=== PATIENT | male | born 1985 | race Caucasian/White ===

== ENCOUNTER 2021-12-08 06:15 | Observation (INO) | payer BC ==
[~2021-12-08] VITALS: Ht 170.2 cm; Wt 103.0 kg
[2021-12-08] MEDS: NITROGLYCERIN 0.4 MG SL TABS BTL 25'S SL PRN ×3 (06:41→06:51)
[2021-12-08 06:43] LABS: BASOPHILS # (AUTO) 0.1 10^3/uL (0.0-0.1); BASOPHILS % (AUTO) 0 % (0-10); EOSINOPHILS # (AUTO) 0.1 10^3/uL (0.0-0.3); EOSINOPHILS % (AUTO) 1 % (0-10); HEMATOCRIT 48 % (40-54); HEMOGLOBIN 16.5 g/dL (13.3-17.7); LYMPHOCYTES # (AUTO) 5.3 10^3/uL (1.0-4.0); LYMPHOCYTES % (AUTO) 37 % (12-44); MEAN CORPUSCULAR HEMOGLOBIN 30 pg (25-34); MEAN CORPUSCULAR HGB CONC 34 g/dL (32-36); MEAN CORPUSCULAR VOLUME 88 fL (80-99); MONOCYTES % (AUTO) 7 % (0-12); NEUTROPHILS % (AUTO) 55 % (42-75); PLATELET COUNT 270 10^3/uL (130-400); WHITE BLOOD COUNT 14.5 10^3/uL (4.3-11.0)
[2021-12-08] MEDS ORDERED: ASPIRIN 81 MG CHEW (CHILDREN'S ASA) PO ONE (06:45)
[2021-12-08 06:53] LABS: ALBUMIN 4.5 GM/DL (3.2-4.5); POTASSIUM 3.9 MMOL/L (3.6-5.0)
--- NOTE | 2021-12-08 06:53 | ED Chest Pain ---
General Chief Complaint: Chest Pain Stated Complaint: CP,RT WRIST PAIN Nursing Triage Note: RIGHT SIDED CHEST PAIN, RIGHT ARM PAIN/NUMBNESS X20MIN. Source: patient Exam Limitations: no limitations History of Present Illness Date Seen by Provider: Dec 08, 2021 Time Seen by Provider: 06:26 Initial Comments This 36-year-old gentleman presents to the emergency room with complaints of central chest pain that started approximately 20 minutes prior to arrival. He has associated symptoms of lightheadedness upon walking and numbness and discomfort down his right arm. Patient had been awake since yesterday afternoon and had not yet gone to bed. Patient has a known history of hypertension which is not treated. He also was suspected of having diabetes based on an ER visit previously. He does not follow with a primary care provider. He denies any fever, cough, or shortness of breath. He has not identified any other alleviating or exacerbating factors. He denies smoking, alcohol, or drugs. He is notably hypertensive upon arrival to the ER. Allergies and Home Medications Allergies Coded Allergies: shellfish derived (Verified Allergy, Unknown, 12/08/21) Patient Home Medication List Home Medication List Reviewed: Yes No Active Prescriptions or Reported Meds Review of Systems Review of Systems Constitutional: no symptoms reported EENTM: No Symptoms Reported Respiratory: No Symptoms Reported Cardiovascular: See HPI Gastrointestinal: No Symptoms Reported Genitourinary: No Symptoms Reported Musculoskeletal: no symptoms reported Skin: no symptoms reported Psychiatric/Neurological: No Symptoms Reported Endocrine: No Symptoms Reported Hematologic/Lymphatic: No Symptoms Reported Past Idohgaj-Iszdat-Sjwgzn Hx Patient Social History Tobacco Use?: No Substance use?: No Alcohol Use?: No Pt feels they are or have been: No Immunizations Up To Date COVID19 Vaccine Diagram Clerk: MODERNA Past Medical History Surgery/Hospitalization HX: POSSBILE DIABETES, HTN Surgeries: No Respiratory: No Cardiac: Yes Hypertension Neurological: No Genitourinary: No Gastrointestinal: No Musculoskeletal: No Endocrine: Yes (Probable diabetes) HEENT: No Cancer: No Psychosocial: No Integumentary: No Family Medical History Reviewed and Corrections made Heart Disease (Mother had ID) Physical Exam Vital Signs Vital Signs - First Documented 12/08/21 06:23 Temp 36.1 Pulse 117 Resp 18 B/P (MAP) 176/125 (142) Pulse Ox 98 O2 Delivery Room Air Capillary Refill : Less Than 3 Seconds Height, Weight, BMI Height: '" Weight: lbs. oz. 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 Norm as Tested Skin: Normal Color, Warm/Dry Progress/Results/Core Measures Results/Orders Lab Results Laboratory Tests Test 12/08/21 06:30 12/08/21 06:31 12/08/21 07:00 Range/Units White Blood Count 14.5 H 4.3-11.0 10^3/uL Red Blood Count 5.47 4.30-5.52 10^6/uL Hemoglobin 16.5 13.3-17.7 g/dL Hematocrit 48 40-54 % Mean Corpuscular Volume 88 80-99 fL Mean Corpuscular Hemoglobin 30 25-34 pg Mean Corpuscular Hemoglobin Concent 34 32-36 g/dL Red Cell Distribution Width 13.1 10.0-14.5 % Platelet Count 270 130-400 10^3/uL Mean Platelet Volume 10.0 9.0-12.2 fL Immature Granulocyte % (Auto) 1 % Neutrophils (%) (Auto) 55 42-75 % Lymphocytes (%) (Auto) 37 12-44 % Monocytes (%) (Auto) 7 0-12 % Eosinophils (%) (Auto) 1 0-10 % Basophils (%) (Auto) 0 0-10 % Neutrophils # (Auto) 8.0 H 1.8-7.8 10^3/uL Lymphocytes # (Auto) 5.3 H 1.0-4.0 10^3/uL Monocytes # (Auto) 1.0 0.0-1.0 10^3/uL Eosinophils # (Auto) 0.1 0.0-0.3 10^3/uL Basophils # (Auto) 0.1 0.0-0.1 10^3/uL Immature Granulocyte # (Auto) 0.1 0.0-0.1 10^3/uL Neutrophils % (Manual) 60 % Lymphocytes % (Manual) 22 % Monocytes % (Manual) 6 % Eosinophils % (Manual) 1 % Basophils % (Manual) 0 % Band Neutrophils 0 % Reactive Lymphocytes 11 % Blood Morphology Comment NORMAL Prothrombin Time 13.4 12.2-14.7 SEC INR Comment 1.0 0.8-1.4 Activated Partial Thromboplast Time 25 24-35 SEC Sodium Level 137 135-145 MMOL/L Potassium Level 3.9 3.6-5.0 MMOL/L Chloride Level 98 98-107 MMOL/L Carbon Dioxide Level 24 21-32 MMOL/L Anion Gap 15 H 5-14 MMOL/L Blood Urea Nitrogen 15 7-18 MG/DL Creatinine 1.15 0.60-1.30 MG/DL Estimat Glomerular Filtration Rate 84 BUN/Creatinine Ratio 13 Glucose Level 298 H 70-105 MG/DL Calcium Level 10.1 8.5-10.1 MG/DL Corrected Calcium 9.7 8.5-10.1 MG/DL Magnesium Level 1.9 1.6-2.4 MG/DL Total Bilirubin 0.7 0.1-1.0 MG/DL Aspartate Amino Transf (AST/SGOT) 25 5-34 U/L Alanine Aminotransferase (ALT/SGPT) 62 H 0-55 U/L Alkaline Phosphatase 67 40-136 U/L Myoglobin 31.9 10.0-92.0 NG/ML Troponin I 0.230 H <0.028 NG/ML Total Protein 8.0 6.4-8.2 GM/DL Albumin 4.5 3.2-4.5 GM/DL D-Dimer 0.31 0.00-0.49 UG/ML C-Reactive Protein High Sensitivity 0.50 0.00-0.50 MG/DL My Orders Orders - MAKI ANAYA MD Cbc With Automated Diff (12/08/21 06:25) Magnesium (12/08/21 06:25) Chest 1 View, Ap/Pa Only (12/08/21 06:25) Ekg Tracing (12/08/21 06:25) Comprehensive Metabolic Panel (12/08/21 06:25) Myoglobin Serum (12/08/21 06:25) Protime With Inr (12/08/21 06:25) Partial Thromboplastin Time (12/08/21 06:25) O2 (12/08/21 06:25) Monitor-Rhythm Ecg Trace Only (12/08/21 06:25) Lipid Panel (12/09/21 06:00) Ed Iv/Invasive Line Start (12/08/21 06:25) Troponin I [place] (12/08/21 06:25) Nitroglycerin 0.4 Mg Btl 25's (Nitrostat (12/08/21 06:45) Aspirin Chewable Tablet (Baby Aspirin Ch (12/08/21 06:45) Manual Differential (12/08/21 06:31) Hs C Reactive Protein (12/08/21 07:07) Fibrin Degradation Products (12/08/21 07:07) Thyroid Analyzer (12/08/21 07:07) Metoprolol Succinate (Xl) Tab (Toprol Xl (12/08/21 07:45) Clopidogrel Tablet (Plavix Tablet) (12/08/21 07:45) Lactated Ringers (Lr 1000 Ml Iv Solution (12/08/21 07:45) Enoxaparin Injection (Lovenox Injectio (12/08/21 07:45) Nitroglycerin Ointment (Nitrobid Ointme (12/08/21 07:45) Medications Given in ED Current Medications Medications Dose Ordered Sig/Vic Route Start Time Stop Time Status Last Admin Dose Admin Aspirin 324 mg ONCE ONCE PO 12/08/21 06:45 12/08/21 06:46 DC 12/08/21 06:41 324 MG Clopidogrel Bisulfate 75 mg ONCE ONCE PO 12/08/21 07:45 12/08/21 07:46 DC 12/08/21 08:01 75 MG Enoxaparin Sodium 100 mg ONCE ONCE SC 12/08/21 07:45 12/08/21 07:46 DC 12/08/21 08:07 100 MG Lactated Ringer's 1,000 ml @ 100 mls/hr Q10H ONCE IV 12/08/21 07:45 12/08/21 17:44 12/08/21 08:01 100 MLS/HR Nitroglycerin 0.4 mg UD PRN SL 12/08/21 06:45 12/08/21 06:51 DC 12/08/21 06:51 0.4 MG Nitroglycerin 0.5 inch ONCE ONCE TOP 12/08/21 07:45 12/08/21 07:46 DC 12/08/21 08:03 0.5 INCH Vital Signs/I&O 12/08/21 06:23 Temp 36.1 Pulse 117 Resp 18 B/P (MAP) 176/125 (142) Pulse Ox 98 O2 Delivery Room Air Blood Pressure Mean: 142 Progress Progress Note #1: Time: 06:49 Progress Note Patient seen and examined. EKG demonstrated no overt ischemia. Aspirin and nitroglycerin are being administered. Progress Note #2: Time: 07:09 Progress Note Blood pressure normalized after nitroglycerin x3. Patient states his pain decreased from 6/10 down to 2/10 after nitroglycerin x3. Troponin is still pending. Progress Note #3: Time: 07:56 Progress Note Patient was noted to have an elevated troponin. I discussed the situation with Dr. Solorzano. He requests admission to the cardiac stepdown unit with the following medications: Nitroglycerin paste 1/2 inch every 8 hours, Plavix 75 mg now and daily, Toprol-XL 50 mg now and daily, weight-based Lovenox therapy. He has also requested an echocardiogram. Patient is being admitted to the hospitalist service. He does have leukocytosis and hyperglycemia. I have added a CRP and D-dimer for further evaluation. Hemoglobin A1c will also be added. Progress Note #4: Time: 08:26 Progress Note D-dimer and CRP were normal. Patient reports his mother had ID a year ago. His father also told him he should be screened for aortic dissection starting at age 40. He gave no other explanation. Initial ECG Impression Date: Dec 08, 2021 Initial ECG Impression Time: 06:28 Initial ECG Rate: 104 Initial ECG Rhythm: Normal Sinus Initial ECG Intervals: Normal Comment Sinus rhythm with right bundle branch block. No ST elevation or depression to suggest ischemia. No axis deviation. Diagnostic Imaging Diagonstic Imaging: Xray Plain Films/CT/US/NM/MRI: chest Comments Chest x-ray viewed by me and report reviewed. See report below: NAME: INGRID AUSTIN MED REC#: [id number] PT STATUS: REG ER : 1985 PHYSICIAN: MAKI ANAYA MD ADMIT DATE: 12/08/21/ER Signed Date of Exam:12/08/21 CHEST 1 VIEW, AP/PA ONLY EXAMINATION: Chest radiograph, portable AP view. DATE: 12/08/2021 7:00 AM INDICATION: 36-year-old male, right-sided chest pain. COMPARISON: None. FINDINGS: Heart size and mediastinal contours are unremarkable. There is no identified pneumothorax. There is no large pleural effusion. There is no identified focal airspace consolidation. IMPRESSION: No identified acute cardiopulmonary abnormality. Dictated by: Dictated on workstation # [id number] Dict: 12/08/21699 Trans: 12/08/21743 CV [id number] Interpreted by: MAX FARAH MD Electronically signed by: MAX FARAH MD 12/08/2144 Departure Communication (Admissions) Time/Spoke to Admitting Phy: 07:50 Dr. Langley Time/Spoke to Consulting Phy: 07:30 Dr. Solorzano Impression Primary Impression: Chest pain Qualified Codes: R07.9 - Chest pain, unspecified Additional Impressions: Elevated troponin Uncontrolled hypertension Hyperglycemia Leukocytosis Qualified Codes: D72.829 - Elevated white blood cell count, unspecified Disposition: ADMITTED INPATIENT Condition: Improved Admissions Decision to Admit Reason: Admit from ER (General) Decision to Admit/Date: Dec 08, 2021 Time/Decision to Admit Time: 07:25 Departure-Patient Inst. Referrals: NO,LOCAL PHYSICIAN (PCP/Family) Primary Care Physician Scripts No Active Prescriptions or Reported Meds MAKI ANAYA MD Dec 08, 2021 06:53
[2021-12-08 06:55] LABS: CALCIUM 10.1 MG/DL (8.5-10.1)
[2021-12-08 06:56] LABS: PROTHROMBIN TIME PATIENT 13.4 SEC (12.2-14.7)
[2021-12-08 06:58] LABS: BILIRUBIN,TOTAL 0.7 MG/DL (0.1-1.0)
[2021-12-08 06:59] LABS: CREATININE SERUM 1.15 MG/DL (0.60-1.30)
[2021-12-08 07:03] LABS: MAGNESIUM 1.9 MG/DL (1.6-2.4)
--- NOTE | 2021-12-08 07:13 | Diagnostic Imaging Report ---
EXAMINATION: Chest radiograph, portable AP view. DATE: 12/08/2021 7:00 AM INDICATION: 36-year-old male, right-sided chest pain. COMPARISON: None. FINDINGS: Heart size and mediastinal contours are unremarkable. There is no identified pneumothorax. There is no large pleural effusion. There is no identified focal airspace consolidation. IMPRESSION: No identified acute cardiopulmonary abnormality. Dictated by: Dictated on workstation # [id number]
[2021-12-08 07:30] LABS: BAND NEUTROPHILS 0 %; EOSINOPHILS % (MANUAL) 1 %; LYMPHOCYTES % (MANUAL) 22 %; MONOCYTES % (MANUAL) 6 %; NEUTROPHILS % (MANUAL) 60 %
[2021-12-08 07:31] LABS: BASOPHILS % (MANUAL) 0 %; RBC MORPH NORMAL; REACTIVE LYMPHOCYTES 11 %
[2021-12-08] MEDS ORDERED: NITROGLYCERIN 2% OINT 1 GM UNIT DOSE PACKET TOP ONE (07:45)
[2021-12-08] MEDS ORDERED: LACTATED RINGERS 1,000 ML IV ONE (07:45)
[2021-12-08] MEDS ORDERED: meTOproloL SUCCINATE 50 MG (TOPROL XL) TAB PO SCH (07:45)
[2021-12-08] MEDS ORDERED: CLOPIDOGREL 75 MG (PLAVIX) TABLET PO ONE (07:45)
[2021-12-08] MEDS ORDERED: ENOXAPARIN 60 MG/0.6 ML (LOVENOX) SYR SC ONE (07:45)
[2021-12-08] MEDS ORDERED: ENOXAPARIN 60 MG/0.6 ML (LOVENOX) SYR ONE (08:06)
[2021-12-08 08:27] LABS: TSH (THYROID ANALYZER) 1.79 UIU/ML (0.35-4.94)
[2021-12-08] MEDS ORDERED: ONDANSETRON 4 MG/2 ML (SDV) Z0FRAN IV PRN (08:45)
[2021-12-08] MEDS ORDERED: morphine INJ 4 MG/ML 1 ML (VIAL/SYRINGE) IV PRN (08:45)
[2021-12-08 11:56] VITALS: BP 122/83
[2021-12-08] MEDS ORDERED: MIDAZOLAM 5 MG/5 ML (VERSED) VIAL ONE (12:47)
[2021-12-08] MEDS ORDERED: fentaNYL INJ 100 MCG/2 ML AMP ONE (12:47)
[2021-12-08] MEDS ORDERED: HEParin (CATH LAB) 2,000 ML IV ONE (12:48)
[2021-12-08] MEDS ORDERED: LIDOCAINE 1% INJ 20 ML VIAL ONE (12:48)
[2021-12-08] MEDS ORDERED: NS IV 1000 ML 1,000 ML ONE (12:48)
[2021-12-08] MEDS ORDERED: methylPREDNISolone 125 MG (Solu-MEDROL) VIAL ONE (12:59)
[2021-12-08] MEDS: NS IV 1000 ML 1,000 ML IV SCH ×2 (13:00→15:42)
[2021-12-08] MEDS ORDERED: diphenhydrAMINE 50 MG/ML INJ (BENADRYL) ONE (13:06)
[2021-12-08] MEDS ORDERED: FAMOTIDINE 20MG/2ML IV (PEPCID) ONE (13:06)
--- NOTE | 2021-12-08 13:07 | Consultation-Cardiology ---
HPI-Cardiology Cardiology Consultation: Date of Consultation 12/08/21 Time Seen by a Provider: 11:30 Date of Admission Attending Physician Mary Solorzano MD Facp Facc Ccds Admitting Physician Elizabeth,Local Physician Consulting Physician MARY SOLORZANO MD, FACP, FAC, [facility], CCDS HPI: Chief Complaint: Chest discomfort 36 yo man who has been having chest discomfort since the afternoon of 12/07/21. It has waxed and waned but hasn't resolved. Did not sleep well last night. Discomfort was worse this am. Came to ER. Was given s/l NTG, discomfort improved, but still continues with a mild residual discomfort. Discomfort is upper midsternal, radiating to the R shoulder/arm, not associated with n/v/d, no palp or syncope, some associated shortness of breath. Denies swelling Review of Systems-Cardiology Review of Systems Constitutional: malaise, tiredness; No weight loss, No weight gain Eyes: No vision change Ears/Nose/Throat: No ear discharge, No nasal drainage, No recent hearing loss Respiratory: As described under HPI Cardiovascular: As described under HPI Gastrointestinal: No diarrhea, No vomiting Genitourinary: No dysuria, No hematuria Musculoskeletal: No back pain, No joint pain, No muscle pain Skin: No rash, No ulcerations Psychiatric/Neurological: No seizure, No focal weakness, No syncope Hematologic: No bleeding abnormalities RSH-Qdsuyd-Ysjzfh Hx Patient Social History Have you traveled recently?: No Alcohol Use?: No Pt feels they are or have been: No Immunizations Up To Date Date of Influenza Vaccine: Aug 07, 2021 Past Medical History PMH As described under Assessment. Family Medical History Family Medical History: Does not report fam h/o early CAD or SCD Allergies and Home Medications Allergies Coded Allergies: shellfish derived (Verified Allergy, Unknown, 12/08/21) Patient Home Medication List Home Medication List Reviewed: Yes No Active Prescriptions or Reported Meds Physical Exam-Cardiology Physical Exam Vital Signs/I&O 12/08/21 12/08/21 12/08/21 12/08/21 06:23 08:16 08:30 09:43 Temp 36.1 Pulse 117 89 97 Resp 18 14 B/P (MAP) 176/125 (142) 151/100 Pulse Ox 98 98 99 O2 Delivery Room Air Room Air 12/08/21 12/08/21 11:56 12:47 Temp 36.9 Pulse 93 107 Resp 12 B/P (MAP) 122/83 (96) Pulse Ox 98 O2 Delivery Room Air Capillary Refill : Less Than 3 Seconds Constitutional: AAO x 3, well-developed, well-nourished HEENT: EOMI, hearing is well preserved; No xanthelasmas are seen Neck: carotid pulses are 2 + bilaterally, with good upstrokes Respiratory: No accessory muscle use; other (good, bilateral air entry) Cardiovascular: regular rate-rhythm, S1 and S2, systolic murmur (soft EDWIN at card basee) Gastrointestinal: No tender; soft; No guarding, No rebound; audible bowel sounds Extremities: No clubbing, No cyanosis, No significant edema Neurologic/Psychiatric: oriented x 3, other (moves all limbs equally) Skin: No rash on exposed areas, No ulcerations on exposed areas Data Review Labs Laboratory Tests 12/08/21 04:40: Troponin I 0.263H 12/08/21 06:30: 12/08/21 06:31: Troponin I 0.230H, White Blood Count 14.5H, Red Blood Count 5.47, Hemoglobin 16.5, Hematocrit 48, Mean Corpuscular Volume 88, Mean Corpuscular Hemoglobin 30, Mean Corpuscular Hemoglobin Concent 34, Red Cell Distribution Width 13.1, Platelet Count 270, Mean Platelet Volume 10.0, Immature Granulocyte % (Auto) 1, Neutrophils (%) (Auto) 55, Lymphocytes (%) (Auto) 37, Monocytes (%) (Auto) 7, Eosinophils (%) (Auto) 1, Basophils (%) (Auto) 0, Neutrophils # (Auto) 8.0H, Lymphocytes # (Auto) 5.3H, Monocytes # (Auto) 1.0, Eosinophils # (Auto) 0.1, Basophils # (Auto) 0.1, Immature Granulocyte # (Auto) 0.1, Neutrophils % (Manual) 60, Lymphocytes % (Manual) 22, Monocytes % (Manual) 6, Eosinophils % (Manual) 1, Basophils % (Manual) 0, Band Neutrophils 0, Reactive Lymphocytes 11, Blood Morphology Comment NORMAL, Prothrombin Time 13.4, INR Comment 1.0, Act ivated Partial Thromboplast Time 25, Sodium Level 137, Potassium Level 3.9, Chloride Level 98, Carbon Dioxide Level 24, Anion Gap 15H, Blood Urea Nitrogen 15, Creatinine 1.15, Estimat Glomerular Filtration Rate 84, BUN/Creatinine Ratio 13, Glucose Level 298H, Calcium Level 10.1, Corrected Calcium 9.7, Magnesium Level 1.9, Total Bilirubin 0.7, Aspartate Amino Transf (AST/SGOT) 25, Alanine Aminotransferase (ALT/SGPT) 62H, Alkaline Phosphatase 67, Myoglobin 31.9, Total Protein 8.0, Albumin 4.5 12/08/21 07:00: D-Dimer 0.31, C-Reactive Protein High Sensitivity 0.50, TSH [place] Testing 1.79 A/P-Cardiology Assessment/Admission Diagnosis Ac NSTEMI - Echo on 12/08/21: LVEF 45-50%, anteroapical hypokinesis Hypertension DM II Discussion and Recomendations * Card cath recommended. We discussed the rationale, procedure, risks, benefits, potential complications and alternatives of cardiac cath and possible ad hoc cor intervention with him in detail. He understands and provides informed consent * Treat with DAPT and beta-ramandeep. Nitrates as needed * Further recs to based on hosp course and cath results Clinical Quality Measures AMI/AHF: ASA po Prior to arrival: MARY Jones MD FACP FAC CCDS Dec 08, 2021 13:07
[2021-12-08] MEDS ORDERED: HEParin 1000 UNIT/ML (10ML VIAL) FOR BOLUS ONE (13:43)
[2021-12-08] MEDS ORDERED: NITRO DRIP 25000 MCG/D5W 250 ML IV ONE (13:43)
[2021-12-08] MEDS ORDERED: EPTIFIBATIDE BOLUS 20 ML IV ONE (13:44)
[2021-12-08] MEDS ORDERED: CLOPIDOGREL 75 MG (PLAVIX) TABLET ONE (14:32)
[2021-12-08] MEDS ORDERED: CLOPIDOGREL 300 MG (PLAVIX) TABLET PO ONE (14:33)
[2021-12-08] MEDS ORDERED: PATIENT MAY USE OWN MEDS, ALL PO SCH (15:00)
[2021-12-08] MEDS ORDERED: ACETAMINOPHEN 325 MG TABLET PO PRN (15:00)
[2021-12-08] MEDS ORDERED: PANTOPRAZOLE 40 MG (PROTONIX) TAB PO ONE (15:15)
[2021-12-08] MEDS ORDERED: ANTACID SUSP 30 ML UDC (MYLANTA) PO PRN (15:15)
--- NOTE | 2021-12-08 15:26 | CARDIAC CATHETERIZATION ---
DATE OF SERVICE: 12/08/2021 CARDIAC CATHETERIZATION AND CORONARY INTERVENTION REPORT The patient is a 36-year-old man who has maturity-onset diabetes mellitus and hypertension, who presented with one day of waxing and waning chest discomfort and troponin was mildly elevated. Echocardiography showed anteroapical hypokinesis. Acute non-ST elevation myocardial infarction was diagnosed. Urgent cardiac catheterization was recommended, because of continuing symptoms. Informed consent was obtained for cardiac catheterization and possible ad hoc coronary intervention. DESCRIPTION OF PROCEDURE: He was brought to the cardiac catheterization laboratory. The right groin was prepared and draped in the usual sterile fashion. Lidocaine 1% was used for local anesthesia. Modified Seldinger technique was used to advance a 5-Luxembourger sheath in the right femoral artery. A 5-Luxembourger JL3.5 catheter was used for left coronary angiography and 5-Luxembourger JR4 catheter was used for right coronary angiography. Subsequently, percutaneous intervention was carried out to the left anterior descending artery that is described below. Following completion of the left anterior descending artery intervention, we proceeded with left heart catheterization with a 5-Luxembourger pigtail catheter and left ventricular angiography was performed. The catheter was then pulled back and removed. Angiography of the right femoral artery was carried out through the sheath and Mynx was used to achieve hemostasis. He tolerated the procedure well. PERCUTANEOUS INTERVENTION TO THE LEFT ANTERIOR DESCENDING: We exchanged the sheath over a wire for a 6-Luxembourger sheath. The patient had received Lovenox 3 to 4 hours earlier in the emergency room. We gave 3000 units of intravenous heparin. We gave a double bolus of Integrilin and Integrilin infusion was continued throughout the procedure. We used a 6-Luxembourger Q4 guide to engage the left coronary artery. We advanced a ChoICE floppy wire across two severe lesions in the mid and distal left anterior descending. The mid lesion was 99% to 100%. The distal lesion was 95 to 99%. We then carried out balloon angioplasty first of the proximal lesion with a 2.0 x 20 mm balloon and then to the distal lesion with a 1.5 x 20 mm balloon. This reduced the proximal lesion to approximately 70% residual and there was still approximately 80% to 90% residual stenosis in the distal lesion. The distal lesion was not responsive, but the vessels certainly turning into a very small caliber vessel. We used a 2.0 x 12 mm stent that was initially deployed at 8 atmospheres to match the distal part of the distal vessel and we then inflated the proximal two-thirds with a same balloon to 12 atmospheres in the proximal half of the stent with a same balloon to 18 atmospheres. All of this was done to match stent into both the distal part of the standard segment and to the proximal part of the standard segment. Good results were obtained. We then stented the proximal lesion with 2.5 x 22 mm stent that was deployed at 14 atmospheres and the proximal half of the stent was dilated with a same balloon to 18 atmospheres. Again, this was used to match the stent to both the proximal segments of the standard segment. Following deployment of these stents, there is no significant residual stenosis and flow throughout the vessel is normal. The patient tolerated the procedure well. HEMODYNAMICS: Left ventricular end-diastolic pressure following coronary angiography and coronary intervention was 16 mmHg. There was no significant pressure gradient on pullback across the aortic valve. LEFT VENTRICULAR ANGIOGRAPHY: Left ventricular angiography was carried out in the TOLLIVER projection only. Global left ventricular systolic function is fairly well preserved, and the ejection fraction is estimated to be approximately 45%. There appears to be hypokinesis of the anteroapical segment of the left ventricle. CORONARY ANGIOGRAPHY: No significant Left main coronary artery disease. Left anterior descending artery was 99-100% occluded in its mid portion and there was also a 95 to 99% stenosis in the distal part of the vessel. Following successful intervention to both lesions, there is no significant residual stenosis. The distal stent is Resolute 2.0 x 12 mm and the proximal stent is Resolute 2.5 x 22 mm. The left circumflex artery is diminutive, and has mild plaques. The right coronary artery is large and dominant. It has diffuse plaques and the terminal posterolateral branch of this artery has approximately 60% to 70% proximal stenosis. CONCLUSIONS: 1. Coronary artery disease primarily consisting of near-total mid-vessel occlusion and severe distal stenosis of the left anterior descending to which successful intervention was carried out. Following deployment of Resolute [place] 2.5 x 23 mm stent to the mid lesion and Resolute [place] 2.0 x 12 mm stent to the distal lesion, there is no significant residual stenosis. Left circumflex artery is nondominant and has mild plaques. Right coronary artery is large and dominant and has diffuse mild plaques and the terminal posterolateral branch of the right coronary artery has 60% to 70% proximal stenosis. 2. Mild elevation of left ventricular end-diastolic pressure (16 mmHg). 3. Anteroapical hypokinesis. 4. Left ventricular ejection fraction approximately 45%. DISCUSSION AND RECOMMENDATIONS: He remains hospitalized. Dual antiplatelet therapy has been initiated. Beta ramandeep therapy is being provided. LEANN inhibitor therapy will be given as tolerated. Statin therapy is also being initiated. The hospitalist services is managing his diabetes. Job ID: [id number] DocumentID: [id number] Dictated Date: 12/08/2021 14:58:10 Locker Room Manager Date: 12/08/2021 15:25:52 Dictated By: PJ PRINGLE MD, MA, FACP, FACC, MTDD
[2021-12-08 15:48] VITALS: BP 146/104
[2021-12-08] MEDS ORDERED: NITROGLYCERIN 2% OINT 1 GM UNIT DOSE PACKET TOP SCH (16:00)
[2021-12-08 20:00] VITALS: BP 131/103
[2021-12-08] MEDS: inSUlin ASPART (NovoLOG) 1 UNIT/0.01 ML (CHARGE PER UNIT) SC SCH (20:50)
[2021-12-08] MEDS ORDERED: ENOXAPARIN 100 MG/1 ML (LOVENOX) SYR SC SCH (21:00)
--- NOTE | 2021-12-08 21:34 | History & Physical-Hospitalist ---
History of Present Illness Source: patient Exam Limitations: no limitations Date Seen 12/08/21 Time Seen by a Provider: 10:20 Attending Physician Mary Solorzano MD Facp Fac Ccds PCP No,Local Physician Referring Physician Date of Admission Dec 08, 2021 at 07:54 Home Medications & Allergies Home Medications Reviewed patient Home Medication Reconciliation performed by pharmacy medication reconciliations avionics repair technician and/or nursing. Patients Allergies have been reviewed. Allergies Allergies Coded Allergies shellfish derived (Verified Allergy, Unknown, 12/08/21) Past Wouqcwk-Xrbcdo-Tfgnbu Hx Patient Social History Tobacco Use?: No Substance use?: No Alcohol Use?: No Pt feels they are or have been: No Immunizations Up To Date Date of Influenza Vaccine: Aug 07, 2021 Tetanus Booster (TDap): Unknown Current Status Advance Directives: No Communicates: Verbally Primary Language: Yakut Preferred Spoken Language: Yakut Is interpretation needed?: No Implanted or Applied Medical D: None Past Medical History Hypertension Family Medical History Reviewed and Corrections made Heart Disease (Mother had NE) Physical Exam Physical Exam Vital Signs Vital Signs - First Documented 12/08/21 06:23 Temp 36.1 Pulse 117 Resp 18 B/P (MAP) 176/125 (142) Pulse Ox 98 O2 Delivery Room Air Capillary Refill : Less Than 3 Seconds Height, Weight, BMI Height: '" Weight: lbs. oz. kg; 35.55 BMI Method: Results Results/Procedures Labs Laboratory Tests 12/08/21 06:31 Patient resulted labs reviewed. Clinical Quality Measures AMI/AHF: ASA po Prior to arrival: SILVIA Mcgowan MD Dec 08, 2021 21:34
[2021-12-09] VITALS: BP 133/90
[2021-12-09 04:00] VITALS: BP 96/58
[2021-12-09 05:08] LABS: TRIGLYCERIDES 212 MG/DL (<150); VLDL CHOLESTEROL 42 MG/DL (5-40)
[2021-12-09 05:13] LABS: CHOLESTEROL 252 MG/DL (< 200)
[2021-12-09 05:14] LABS: HDL CHOLESTEROL 36 MG/DL (40-60)
[2021-12-09] MEDS: NS IV 1000 ML 1,000 ML IV SCH ×6 (06:26→20:07)
[2021-12-09] MEDS: inSUlin ASPART (NovoLOG) 1 UNIT/0.01 ML (CHARGE PER UNIT) SC SCH ×4 (06:26→20:06)
[2021-12-09 08:04] VITALS: BP 115/81
[2021-12-09] MEDS: lisINopril 5 MG (PRINIVIL) TABLET PO SCH (08:30)
[2021-12-09] MEDS: meTOproloL SUCCINATE 50 MG (TOPROL XL) TAB PO SCH (08:30)
[2021-12-09] MEDS: CLOPIDOGREL 75 MG (PLAVIX) TABLET PO SCH (08:30)
[2021-12-09] MEDS: PANTOPRAZOLE 40 MG (PROTONIX) TAB PO SCH (08:30)
[2021-12-09] MEDS: ASPIRIN E.C. 81 MG (ECOTRIN) TAB PO SCH (08:30)
[2021-12-09] MEDS ORDERED: ASPI-1238 PO (10:22)
[2021-12-09] MEDS ORDERED: CLOP75TA28 PO (10:22)
[2021-12-09] MEDS ORDERED: LISI5TAB20 PO (10:22)
[2021-12-09] MEDS ORDERED: METO50TA7 PO (10:22)
[2021-12-09] MEDS ORDERED: ATOR80TA76 PO (10:22)
[2021-12-09] MEDS ORDERED: METF-397 PO (10:23)
[2021-12-09 12:00] VITALS: BP 120/77
--- NOTE | 2021-12-09 15:29 | Progress Note - Cardiology ---
Cardiology SOAP Progress Note Subjective: No cp or palp or syncope or shortness of breath No groin discomfort or leg pain or discoloration No n/v/d No swelling Objective: I&O/Vital Signs 12/09/21 12/09/21 12/09/21 12/09/21 04:00 07:00 08:04 09:47 Temp 36.5 36.6 Pulse 79 87 91 Resp 14 B/P (MAP) 96/58 (71) 115/81 (92) Pulse Ox 92 96 99 O2 Delivery Room Air Room Air Room Air 12/09/21 12/09/21 12:00 13:00 Temp 36.4 Pulse 96 101 Resp 15 B/P (MAP) 120/77 (91) Pulse Ox 96 O2 Delivery Room Air 12/09/21 00:00 Intake Total 200 ml Output Total 1300 ml Balance -1100 ml Condition: DP/PT pulses palpable Bruising: mild bruising Constitutional: AAO x 3, well-developed, well-nourished Respiratory: No accessory muscle use; other (good, bilateral air entry) Cardiovascular: regular rate-rhythm, S1 and S2, systolic murmur (soft EDWIN at card basee) Gastrointestional: No tender; soft; No guarding, No rebound; audible bowel sounds Extremities: No clubbing, No cyanosis, No significant edema Neurologic/Psychiatric: oriented x 3, other (moves all limbs equally) Skin: No rash on exposed areas, No ulcerations on exposed areas Results/Procedures: Labs Laboratory Tests 12/08/21 20:42: Glucometer 346H 12/09/21 04:48: Triglycerides Level 212H, Cholesterol Level 252H, LDL Cholesterol Direct 222H, VLDL Cholesterol 42H, HDL Cholesterol 36L 12/09/21 06:20: Glucometer 257H 12/09/21 10:36: Glucometer 275H A/P: Assessment: Ac NSTEMI, treated with PCI to LAD (see below) - Echo on 12/08/21: LVEF 45-50%, anteroapical hypokinesis - Cardiac cath on 12/08/21: near-total mid vessel occlusion and severe distal stenosis of the left anterior descending. Following deployment of [place] 2.5 x 23 mm stent to the mid lesion and [place] Resolute 2.0 x 12 mm stent to the distal lesion, there is no significant residual stenosis. Left circumflex artery is nondominant and has mild plaques. Right coronary artery is large and dominant and has diffuse mild plaques and the terminal posterolateral branch of the right coronary artery has 60% to 70% proximal stenosis. Mild elevation of left ventricular end-diastolic pressure (16 mmHg). Anteroapical hypokinesis. Left ventricular ejection fraction approximately 45%. Hypertension DM II Plan: * We had a detailed discussion regarding his diagnoses, interventions and treatment undertaken, risk factor mod, and future treatment plans * Increase ambulation. Advised ambulation in the durán * Continue therapy with DAPT and statin and bb and LEANN-inhib Clinical Quality Measures AMI/AHF: ASA po Prior to arrival: PJ Jones MD FACP FAC CCDS Dec 09, 2021 15:29
[2021-12-09] MEDS ORDERED: ENOXAPARIN 40 MG/0.4 ML (LOVENOX) SYR SC ONE (15:30)
[2021-12-09 15:55] VITALS: BP 108/80
--- NOTE | 2021-12-09 16:20 | Discharge Summary ---
Discharge Summary Hospital Course Problems/Dx: (1) Chest pain Status: Acute Qualifiers: Qualified Codes: R07.9 - Chest pain, unspecified (2) CAD (coronary artery disease) Status: Acute Qualifiers: (3) HTN (hypertension) Status: Acute (4) HLD (hyperlipidemia) Status: Acute (5) T2DM (type 2 diabetes mellitus) Status: Acute Qualifiers: Qualified Codes: E11.9 - Type 2 diabetes mellitus without complications (6) Obesity Status: Chronic Hospital Course Date of Admission: Dec 08, 2021 at 07:54 Admission Diagnosis : Chest pain, NSTEMI Family Physician/Provider: ElizabethLocal Physician Date of Discharge: 12/09/21 Discharge Diagnosis: NSTEMI, CAD, HTN, HLD, T2DM Hospital Course: Silvio Cullen is a 36 year old male with no known past medical history who presented with chest pain. He was found to have an elevated troponin. Cardiology was consulted and assisted with his care. He underwent left heart catheterization. He was found to have a near complete occlusion of his LAD and required two stents. He was started on Aspirin and Plavix. He was found to have hyperlipidemia and was started on Lipitor. He was hypertensive and was started on Metoprolol and Lisinopril. He was also diagnosed with type 2 diabetes mellitus and was started on Metformin. His A1C was pending at the time of discharge. He needs to establish with a primary care physician. He should follow up with Cardiology in a few weeks. He was discharged home in stable condition. Labs and Pending Lab Test: Laboratory Tests 12/08/21 20:42: Glucometer 346H 12/09/21 04:48: Triglycerides Level 212H, Cholesterol Level 252H, LDL Cholesterol Direct 222H, VLDL Cholesterol 42H, HDL Cholesterol 36L 12/09/21 06:20: Glucometer 257H 12/09/21 10:36: Glucometer 275H 12/09/21 15:20: Glucometer 254H Home Meds Active Metformin HCl 500 Mg Tablet 500 Mg PO DAILY@07 30 Days TAKE ONE TAB DAILY X 1 WEEK, THEN INCREASE TO ONE TAB TWICE DAILY Lisinopril 5 Mg Tablet 5 Mg PO DAILY 30 Days Metoprolol Succinate 50 Mg Tab.er.24h 50 Mg PO DAILY 30 Days Atorvastatin Calcium 80 Mg Tablet 80 Mg PO HS 30 Days Clopidogrel (Clopidogrel Bisulfate) 75 Mg Tablet 75 Mg PO DAILY 30 Days Aspirin EC (Aspirin) 81 Mg Tablet. 81 Mg PO DAILY 30 Days Assessment/Pt Instructions Take medications as prescribed. Establish with a primary care physician. Follow up with Cardiology. Return with worsening chest pain, shortness of breath, or if you feel like you are getting worse. Discharge Planning: <30 minutes discharge planning Discharge Instructions Discharge Diet: ADA Diet Activity as Tolerated: Yes Consultations Cardiology Discharge Physical Examination Vital Signs Vital Signs Date Time Temp Pulse Resp B/P (MAP) Pulse Ox O2 Delivery O2 Flow Rate FiO2 12/09/21 15:55 36.8 100 17 108/80 (89) 97 Room Air General Appearance: No Apparent Distress, Obese Respiratory: Lungs Clear, No Respiratory Distress Cardiovascular: Regular Rate, Rhythm, No Murmur Gastrointestinal: Normal Bowel Sounds, Soft Extremity: Normal Inspection, No Pedal Edema Skin: Normal Color, Warm/Dry Neurologic/Psychiatric: Alert, Oriented x3 Allergies: Coded Allergies: shellfish derived (Verified Allergy, Unknown, 12/08/21) Discharge Summary Date of Admission Dec 08, 2021 at 07:54 Date of Discharge Discharge Date: Dec 09, 2021 Discharge Time: 16:19 Admission Diagnosis NSTEMI Consults/Procedures Consulations Cardiology Procedures Left heart catheterization Discharge Diagnosis (1) CAD (coronary artery disease) Status: Acute Qualifiers: (2) HTN (hypertension) Status: Acute (3) HLD (hyperlipidemia) Status: Acute (4) T2DM (type 2 diabetes mellitus) Status: Acute Qualifiers: Qualified Codes: E11.9 - Type 2 diabetes mellitus without complications (5) Obesity Status: Chronic (6) Metabolic syndrome Status: Acute Clinical Quality Measures AMI/AHF: ASA po Prior to arrival: SILVIA Mcgowan MD Dec 09, 2021 16:12
[2021-12-09 19:28] VITALS: BP 111/66
[2021-12-10] VITALS: BP 107/67
[2021-12-10 04:00] VITALS: BP 111/72
[2021-12-10] MEDS: inSUlin ASPART (NovoLOG) 1 UNIT/0.01 ML (CHARGE PER UNIT) SC SCH (05:55)
[2021-12-10] MEDS: NS IV 1000 ML 1,000 ML IV SCH ×2 (06:58→07:35)
[2021-12-10] MEDS ORDERED: metFORMIN 500 MG (GLUCOPHAGE) TAB PO SCH (07:00)
[2021-12-10 08:00] VITALS: BP 100/70
[2021-12-10] MEDS: CLOPIDOGREL 75 MG (PLAVIX) TABLET PO SCH (08:15)
[2021-12-10] MEDS: ASPIRIN E.C. 81 MG (ECOTRIN) TAB PO SCH (08:15)
[2021-12-10] MEDS: meTOproloL SUCCINATE 50 MG (TOPROL XL) TAB PO SCH (08:15)
[2021-12-10] MEDS: lisINopril 5 MG (PRINIVIL) TABLET PO SCH (08:15)
[2021-12-10] MEDS: PANTOPRAZOLE 40 MG (PROTONIX) TAB PO SCH (08:15)
--- NOTE | 2021-12-10 09:46 | Progress Note - Cardiology ---
Cardiology SOAP Progress Note Subjective: Lying in bed No c/o CP, SOB, palpitations No c/o right groin discomfort Objective: I&O/Vital Signs 12/10/21 12/10/21 12/10/21 12/10/21 00:00 01:00 04:00 07:00 Temp 36.6 36.4 Pulse 87 80 81 83 Resp 16 15 B/P (MAP) 107/67 (80) 111/72 (85) Pulse Ox 94 96 O2 Delivery Room Air Room Air 12/10/21 12/10/21 08:00 08:00 Temp 36.4 Pulse 98 Resp 18 B/P (MAP) 100/70 (80) Pulse Ox 98 98 O2 Delivery Room Air Room Air 12/10/21 00:00 Intake Total 1150 ml Balance 1150 ml Side: right Condition: DP/PT pulses palpable, extremity w/d/p Bruising: mild bruising Constitutional: AAO x 3, well-developed, well-nourished Respiratory: No accessory muscle use; other (good, bilateral air entry) Cardiovascular: regular rate-rhythm, S1 and S2, systolic murmur (soft EDWIN at card basee) Gastrointestional: No tender; soft; No guarding, No rebound; audible bowel sounds Extremities: No clubbing, No cyanosis, No significant edema Neurologic/Psychiatric: oriented x 3, other (moves all limbs equally) Skin: No rash on exposed areas, No ulcerations on exposed areas Results/Procedures: Labs Laboratory Tests 12/09/21 10:36: Glucometer 275H 12/09/21 15:20: Glucometer 254H 12/09/21 20:02: Glucometer 243H 12/10/21 05:49: Glucometer 186H A/P: Assessment: Ac NSTEMI, treated with PCI to LAD (see below) - Echo on 12/08/21: LVEF 45-50%, anteroapical hypokinesis - Cardiac cath on 12/08/21: near-total mid vessel occlusion and severe distal stenosis of the left anterior descending. Following deployment of [place] 2.5 x 23 mm stent to the mid lesion and [place] Resolute 2.0 x 12 mm stent to the distal lesion, there is no significant residual stenosis. Left circumflex artery is nondominant and has mild plaques. Right coronary artery is large and dominant and has diffuse mild plaques and the terminal posterolateral branch of the right coronary artery has 60% to 70% proximal stenosis. Mild elevation of left ventricular end-diastolic pressure (16 mmHg). Anteroapical hypokinesis. Left ventricular ejection fraction approximately 45%. Hypertension - controlled DM II - mangaed by PCP Plan: * Answered questions in detail this morning * OK to discharge home with out pt f/u * Continue therapy with DAPT and statin * Reduce bb and LEANN-inhib d/t somewhat low BP - titrate as tolerated Clinical Quality Measures AMI/AHF: ASA po Prior to arrival: PADMINI Rodriguez Dec 10, 2021 09:46
[2021-12-10] MEDS ORDERED: METO-351 PO (09:52)
--- NOTE | 2021-12-10 09:52 | Discharge Summary ---
Discharge Summary Hospital Course Was the Problem List Reviewed?: Yes Problems/Dx: (1) CAD (coronary artery disease) Status: Acute Qualifiers: (2) HTN (hypertension) Status: Acute (3) HLD (hyperlipidemia) Status: Acute (4) T2DM (type 2 diabetes mellitus) Status: Acute Qualifiers: Qualified Codes: E11.9 - Type 2 diabetes mellitus without complications (5) Obesity Status: Chronic (6) Metabolic syndrome Status: Acute Hospital Course Date of Admission: Dec 08, 2021 at 07:54 Admission Diagnosis : Family Physician/Provider: No,Local Physician Date of Discharge: 12/10/21 Discharge Diagnosis: Unstable angina, non-ST elevation IN, cardiac cath with stents placed in LAD, hypercholesterolemia, diabetes new-onset Hospital Course: Saman is a 36 yo M with no known past medical history who presented to the [place] ER on 12/08/21 due to chest pain, feeling light headed, and numbness of his right arm. He had tachycardia and an elevated troponin. His EKG had sinus rhythm with a RBBB and no ST elevations or depression. Chest X-ray showed no abnormalities. Patient was hospitalized due to elevated troponin and was consulted by cardiology. He had left heart catheterizaton done with two stents placed due to almost complete obstruction of LAD artery. Patient did not experience any issues post catheterization. He was started on Aspirin and Plavix. He was found to have hyperlipidemia and was started on Lipitor. He was hypertensive and was started on Metoprolol and Lisinopril. He was also diagnosed with type 2 diabetes mellitus and was started on Metformin. His A1C was 10.3 at discharge. After being discharged from the hospital he will follow up with Dr. Vazquez for cardiology and will be establishing care with a primary physician. He was stable without any pain at discharge. HERMAN LEON Dec 10, 2021 13:10 Labs and Pending Lab Test: Laboratory Tests 12/09/21 10:36: Glucometer 275H 12/09/21 15:20: Glucometer 254H 12/09/21 20:02: Glucometer 243H 12/10/21 05:49: Glucometer 186H Home Meds Active Metformin HCl 500 Mg Tablet 500 Mg PO DAILY@07 30 Days TAKE ONE TAB DAILY X 1 WEEK, THEN INCREASE TO ONE TAB TWICE DAILY Atorvastatin Calcium 80 Mg Tablet 80 Mg PO HS 30 Days Clopidogrel (Clopidogrel Bisulfate) 75 Mg Tablet 75 Mg PO DAILY 30 Days Aspirin EC (Aspirin) 81 Mg Tablet.dr 81 Mg PO DAILY 30 Days Assessment/Pt Instructions Cardiology follow-up Discharge Planning: <30 minutes discharge planning Discharge Instructions Discharge Diet: ADA Diet Activity as Tolerated: Yes Discharge Physical Examination Vital Signs Vital Signs Date Time Temp Pulse Resp B/P (MAP) Pulse Ox O2 Delivery O2 Flow Rate FiO2 12/10/21 08:00 36.4 98 18 100/70 (80) 98 Room Air General Appearance: No Apparent Distress, WD/WN, Chronically ill, Obese Allergies: Coded Allergies: shellfish derived (Verified Allergy, Unknown, 12/08/21) Discharge Summary Date of Admission Dec 08, 2021 at 07:54 Date of Discharge Discharge Date: Dec 09, 2021 Discharge Time: 16:19 Admission Diagnosis NSTEMI Discharge Diagnosis (1) CAD (coronary artery disease) Status: Acute Qualifiers: (2) HTN (hypertension) Status: Acute (3) HLD (hyperlipidemia) Status: Acute (4) T2DM (type 2 diabetes mellitus) Status: Acute Qualifiers: Qualified Codes: E11.9 - Type 2 diabetes mellitus without complications (5) Obesity Status: Chronic (6) Metabolic syndrome Status: Acute Clinical Quality Measures AMI/AHF: ASA po Prior to arrival: GEOVANNI Cash DO Dec 10, 2021 09:52
[2021-12-10] MEDS ORDERED: LISI2.5T13 PO (09:53)
--- NOTE | 2021-12-10 11:22 | Progress Note - Cardiology ---
Cardiology SOAP Progress Note Subjective: Feels well No groin or leg discomfort/discoloration No cp or palp or syncope No shortness of breath at rest No n/v/d Objective: I&O/Vital Signs 12/10/21 12/10/21 12/10/21 12/10/21 00:00 01:00 04:00 07:00 Temp 36.6 36.4 Pulse 87 80 81 83 Resp 16 15 B/P (MAP) 107/67 (80) 111/72 (85) Pulse Ox 94 96 O2 Delivery Room Air Room Air 12/10/21 12/10/21 08:00 08:00 Temp 36.4 Pulse 98 Resp 18 B/P (MAP) 100/70 (80) Pulse Ox 98 98 O2 Delivery Room Air Room Air 12/09/21 23:59 Intake Total 1150 ml Balance 1150 ml Side: right Condition: DP/PT pulses palpable, extremity w/d/p Bruising: mild bruising Constitutional: AAO x 3, well-developed, well-nourished Respiratory: No accessory muscle use; other (good, bilateral air entry) Cardiovascular: regular rate-rhythm, S1 and S2, systolic murmur (soft EDWIN at card basee) Gastrointestional: No tender; soft; No guarding, No rebound; audible bowel sounds Extremities: No clubbing, No cyanosis, No significant edema Neurologic/Psychiatric: oriented x 3, other (moves all limbs equally) Skin: No rash on exposed areas, No ulcerations on exposed areas Results/Procedures: Labs Laboratory Tests 12/09/21 15:20: Glucometer 254H 12/09/21 20:02: Glucometer 243H 12/10/21 05:49: Glucometer 186H A/P: Assessment: Ac NSTEMI, treated with PCI to LAD (see below) - Echo on 12/08/21: LVEF 45-50%, anteroapical hypokinesis - Cardiac cath on 12/08/21: near-total mid vessel occlusion and severe distal s tenosis of the left anterior descending. Following deployment of [place]al[place] 2.5 x 23 mm stent to the mid lesion and [place] Resolute 2.0 x 12 mm stent to the distal lesion, there is no significant residual stenosis. Left circumflex artery is nondominant and has mild plaques. Right coronary artery is large and dominant and has diffuse mild plaques and the terminal posterolateral branch of the right coronary artery has 60% to 70% proximal stenosis. Mild elevation of left ventricular end-diastolic pressure (16 mmHg). Anteroapical hypokinesis. Left ventricular ejection fraction approximately 45%. Hypertension - controlled DM II - mangaed by PCP Plan: * Answered questions in detail this morning * OK to discharge home with out pt f/u * Continue therapy with DAPT and statin * Reduce bb and LEANN-inhib d/t somewhat low BP - titrate as tolerated Clinical Quality Measures AMI/AHF: ASA po Prior to arrival: PJ Jones MD FACP FACC CCDS Dec 10, 2021 11:22
--- NOTE | 2021-12-10 13:10 | Progress Note ---
HERMAN LEON 12/10/21 1310: Progress Note Saman is a 36 yo M with no known past medical history who presented to the [place] ER on 12/08/21 due to chest pain, feeling light headed, and numbness of his right arm. He had tachycardia and an elevated troponin. His EKG had sinus rhythm with a RBBB and no ST elevations or depression. Chest X-ray showed no abnormalities. Patient was hospitalized due to elevated troponin and was consulted by cardiology. He had left heart catheterizaton done with two stents placed due to almost complete obstruction of LAD artery. Patient did not experie nce any issues post catheterization. He was started on Aspirin and Plavix. He was found to have hyperlipidemia and was started on Lipitor. He was hypertensive and was started on Metoprolol and Lisinopril. He was also diagnosed with type 2 diabetes mellitus and was started on Metformin. His A1C was 10.3 at discharge. After being discharged from the hospital he will follow up with Dr. Vazquez for cardiology and will be establishing care with a primary physician. He was stable without any pain at discharge. CHERYLE LOCKWOOD DO 12/11/21 0526: Supervisory-Addendum Brief Verification & Attestation Participated in pt care: history, MDM, physical Personally performed: exam, history, MDM, supervision of care Care discussed with: Medical Student Procedures: n/a Results interpretation: Verified all documentation Verification and Attestation of Medical Student E/M Service A medical student performed and documented this service in my presence. I reviewed and verified all information documented by the medical student and made modifications to such information, when appropriate. I personally performed the physical exam and medical decision making. Cheryle Lockwood, Dec 11, 2021,05:26 HERMAN LEON Dec 10, 2021 13:10 CHERYLE LOCKWOOD DO Dec 11, 2021 05:26
[2021-12-10] MEDS ORDERED: ENOXAPARIN 40 MG/0.4 ML (LOVENOX) SYR SC SCH (15:30)
== END 2021-12-10 11:25 | disposition home or self-care (01) ==
LOC: ER 06:21 → CSD 07:54
PROVIDERS: ADMIT Internal Medicine Cardiovascular Disease; ATTEND Internal Medicine Cardiovascular Disease
DX: I25.110 Atherosclerotic heart disease of native coronary artery with unstable angina pectoris (principal); I21.4 Non-ST elevation (NSTEMI) myocardial infarction; E78.5 Hyperlipidemia, unspecified; E66.9 Obesity, unspecified; E88.81 Metabolic syndrome and other insulin resistance; E78.00 Pure hypercholesterolemia, unspecified; I11.9 Hypertensive heart disease without heart failure; D72.829 Elevated white blood cell count, unspecified; E11.65 Type 2 diabetes mellitus with hyperglycemia; I45.10 Unspecified right bundle-branch block; Z68.35 Body mass index [BMI] 35.0-35.9, adult; Z95.5 Presence of coronary angioplasty implant and graft; Z79.82 Long term (current) use of aspirin; Z79.02 Long term (current) use of antithrombotics/antiplatelets; Z79.899 Other long term (current) drug therapy; Z79.84 Long term (current) use of oral hypoglycemic drugs
CPT/HCPCS: 71045; 80053; 80061; 82947 ×3; 83036; 83735; 83874; 84443; 84484; 85007; 85027; 85379; 85610; 85730; 86141; 93005 ×2; 93041; 93306; 93458; 99284; C1725 ×2; C1760; C1769; C1874 ×2; C1887 ×2; C1894 ×2; C9600; 36415

== ENCOUNTER → 2022-05-27 | Outpatient (CLI) | payer BC ==
[~2022-05-27] MED LIST: ASPI-1238 PO; ATOR80TA76 PO; CLOP75TA28 PO; LISI2.5T13 PO; LISI5TAB20 PO; METF-397 PO; METO-351 PO; METO50TA7 PO
--- NOTE | 2022-05-27 13:08 | Diagnostic Imaging Report ---
PROCEDURE: US Thyroid. TECHNIQUE: Multiple real-time grayscale images were obtained of the thyroid in various projections. INDICATION: Right thyroid nodule. FINDINGS: There is homogeneous appearance to both right and left lobes of thyroid. Right lobe measures 5 x 1.6 x 1.4 cm. Left lobe measures 4.7 x 1.8 x 1.7 cm. Isthmus is 3 mm. There is normal blood flow. IMPRESSION: Mild thyromegaly with no thyroid nodules demonstrated. Dictated by: Dictated on workstation # [id number]
== END ==
LOC: RAD 11:09
PROVIDERS: ATTEND Family Medicine
DX: E04.1 Nontoxic single thyroid nodule (principal)
CPT/HCPCS: 76536

== ENCOUNTER → 2022-10-03 | Outpatient (CLI) | payer BC | LOC: CARD 11:00 | PROVIDERS: ATTEND Nurse Practitioner Family | DX: I51.89 Other ill-defined heart diseases (principal) | CPT/HCPCS: C8929 ×2; 93306 ==

== ENCOUNTER 2022-11-02 05:58 | Emergency (ER) | payer BC ==
[~2022-11-02] VITALS: Ht 170 cm; Wt 103.0 kg
[2022-11-02] MEDS ORDERED: [UNRECOGNIZED DRUG - CODE] (06:18)
[2022-11-02] MEDS ORDERED: METO50TA7 PO (06:18)
--- NOTE | 2022-11-02 06:24 | ED Chest Pain ---
General Chief Complaint: Cardiac/General Problems Stated Complaint: POSS AFIB,TIGHTNESS OF CHEST Nursing Triage Note: CHEST TIGHTNESS SINCE 199 Source: patient, old records Exam Limitations: no limitations History of Present Illness Date Seen by Provider: Nov 02, 2022 Time Seen by Provider: 06:11 Initial Comments This 37-year-old gentleman with coronary artery disease and diabetes presents to the emergency room with chest tightness since [id number]. He has history of significant coronary artery disease and underwent stenting of the LAD x2 in December when he was admitted for NSTEMI. Most recent echo a few weeks ago showed improvement in EF of 50-55%. There was still apical hypokinesis but no significant systolic dysfunction. He has not yet taken aspirin or Plavix this morning. He normally takes all of his medications around 0900. He describes the pain as an aching or dull discomfort or pressure. It feels like his chest is being stretched laterally. He does not recall if this is similar to the chest pain he experienced during his NSTEMI. Since December he has lost a significant amount of weight and has been taking medications including aspirin, Plavix, atorvastatin, lisinopril, and Toprol-XL. He reports good compliance with his medications over the past few months. He reports reasonably good control of his diabetes. 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 Walker is his primary care provider. He reports pain improved when he sat up and moved around and worsened when he laid down flat. Pain is rated as 4/10 during assessment. Medical students assisted with obtaining this history and old records were also reviewed. He has been off diabetic medications since losing a significant am ount of weight. Allergies and Home Medications Allergies Coded Allergies: shellfish derived (Verified Allergy, Unknown, 12/08/21) Patient Home Medication List Home Medication List Reviewed: Yes Aspirin (Aspirin EC) 81 Mg Tablet.dr, 81 MG PO DAILY Prescribed by: SILVIA TANG on 12/09/21 1022 Atorvastatin Calcium (Atorvastatin Calcium) 80 Mg Tablet, 80 MG PO HS Prescribed by: SILVIA TANG on 12/09/21 1022 Blood Sugar Diagnostic (Accu-Chek Guide Test Strip) 1 Each Strip, (Reported) Entered as Reported by: EMILEE ALEJO on 11/02/22 0618 Last Action: New Order Clopidogrel Bisulfate (Clopidogrel) 75 Mg Tablet, 75 MG PO DAILY Prescribed by: SILVIA TANG on 12/09/21 1022 Lisinopril (Lisinopril) 2.5 Mg Tablet, 2.5 MG PO DAILY Prescribed by: PADMINI LOBATO on 12/10/21 0953 Metformin HCl (Metformin HCl) 500 Mg Tablet, 500 MG PO DAILY@07 Prescribed by: SILVIA TANG on 12/09/21 1023 Metoprolol Succinate (Metoprolol Succinate) 50 Mg Tab.er.24h, (Reported) Entered as Reported by: EMILEE ALEJO on 11/02/22617 Last Action: New Order Pantoprazole Sodium (Protonix) 40 Mg Tablet.dr, 40 MG PO DAILY Prescribed by: MAKI STOLL on 11/02/22941 Discontinued Medications Metoprolol Succinate (Toprol Xl) 25 Mg Tab.er.24h, 25 MG PO DAILY Discontinued Reason: No Longer Taking Prescribed by: PADMINI LOBATO on 12/10/21951 Last Action: Discontinued Review of Systems Review of Systems Constitutional: no symptoms reported EENTM: No Symptoms Reported Respiratory: No Symptoms Reported Cardiovascular: See HPI Gastrointestinal: No Symptoms Reported Genitourinary: No Symptoms Reported Musculoskeletal: no symptoms reported Skin: no symptoms reported Psychiatric/Neurological: No Symptoms Reported Endocrine: No Symptoms Reported Hematologic/Lymphatic: No Symptoms Reported Past Fbiwbiv-Huxdse-Nartyw Hx Patient Social History Tobacco Use?: No Substance use?: No Alcohol Use?: No Pt feels they are or have been: No Immunizations Up To Date First/Initial COVID19 Vaccinat: X2 Past Medical History Surgery/Hospitalization HX: POSSBILE DIABETES, HTN, STENTS Surgeries: Yes Coronary Stent Respiratory: No Cardiac: Yes Coronary Artery Disease, High Cholesterol, Hypertension Neurological: No Genitourinary: No Gastrointestinal: No Musculoskeletal: No Endocrine: Yes Diabetes, Non-Insulin dep HEENT: No Cancer: No Psychosocial: No Integumentary: No Family Medical History Heart Disease Physical Exam Vital Signs Vital Signs - First Documented 11/02/22 06:06 Temp 36.6 Pulse 79 Resp 16 B/P (MAP) 153/85 (107) Pulse Ox 99 O2 Delivery Room Air Capillary Refill : Less Than 3 Seconds Height, Weight, BMI Height: '" Weight: lbs. oz. kg; 35.00 BMI Method: General Appearance: No Apparent Distress, WD/WN HEENT: PERRL/EOMI, Normal ENT Inspection Neck: Normal Inspection; No JVD Respiratory: Lungs Clear, Normal Breath Sounds, No Accessory Muscle Use Cardiovascular: Regular Rate, Rhythm, No Edema, No Murmur, Normal Peripheral Pulses Gastrointestinal: Normal Bowel Sounds, Non Tender, Soft; No Distended Extremity: Normal Inspection, Non Tender, No Calf Tenderness, No Pedal Edema Neurologic/Psychiatric: Alert, Oriented x3, No Motor/Sensory Deficits, Normal Mood/Affect, stoker mechanic II-XII Norm as Tested Skin: Normal Color, Warm/Dry Progress/Results/Core Measures Results/Orders Lab Results Laboratory Tests Test 11/02/22 06:12 11/02/22 08:27 Range/Units White Blood Count 11.0 4.3-11.0 10^3/uL Red Blood Count 4.87 4.30-5.52 10^6/uL Hemoglobin 15.6 13.3-17.7 g/dL Hematocrit 44 40-54 % Mean Corpuscular Volume 91 80-99 fL Mean Corpuscular Hemoglobin 32 25-34 pg Mean Corpuscular Hemoglobin Concent 35 32-36 g/dL Red Cell Distribution Width 12.9 10.0-14.5 % Platelet Count 219 130-400 10^3/uL Mean Platelet Volume 9.8 9.0-12.2 fL Immature Granulocyte % (Auto) 0 % Neutrophils (%) (Auto) 65 42-75 % Lymphocytes (%) (Auto) 28 12-44 % Monocytes (%) (Auto) 6 0-12 % Eosinophils (%) (Auto) 1 0-10 % Basophils (%) (Auto) 1 0-10 % Neutrophils # (Auto) 7.1 1.8-7.8 10^3/uL Lymphocytes # (Auto) 3.1 1.0-4.0 10^3/uL Monocytes # (Auto) 0.7 0.0-1.0 10^3/uL Eosinophils # (Auto) 0.1 0.0-0.3 10^3/uL Basophils # (Auto) 0.1 0.0-0.1 10^3/uL Immature Granulocyte # (Auto) 0.0 0.0-0.1 10^3/uL Prothrombin Time 13.4 12.2-14.7 SEC INR Comment 1.0 0.8-1.4 Activated Partial Thromboplast Time 26 24-35 SEC Sodium Level 140 135-145 MMOL/L Potassium Level 3.6 3.6-5.0 MMOL/L Chloride Level 104 98-107 MMOL/L Carbon Dioxide Level 23 21-32 MMOL/L Anion Gap 13 5-14 MMOL/L Blood Urea Nitrogen 16 7-18 MG/DL Creatinine 0.90 0.60-1.30 MG/DL Estimat Glomerular Filtration Rate 112 BUN/Creatinine Ratio 18 Glucose Level 128 H 70-105 MG/DL Calcium Level 10.1 8.5-10.1 MG/DL Corrected Calcium 8.5-10.1 MG/DL Magnesium Level 2.4 1.6-2.4 MG/DL Total Bilirubin 0.6 0.1-1.0 MG/DL Aspartate Amino Transf (AST/SGOT) 20 5-34 U/L Alanine Aminotransferase (ALT/SGPT) 30 0-55 U/L Alkaline Phosphatase 55 40-136 U/L Myoglobin 45.1 10.0-92.0 NG/ML Troponin I < 0.028 < 0.028 <0.028 NG/ML Total Protein 8.1 6.4-8.2 GM/DL Albumin 4.9 H 3.2-4.5 GM/DL My Orders Orders - MAKI ANAYA MD Ekg Tracing (11/02/22 06:07) Ekg Tracing (11/02/22 06:07) Cbc With Automated Diff (11/02/22 06:18) Magnesium (11/02/22 06:18) Chest 1 View, Ap/Pa Only (11/02/22 06:18) Comprehensive Metabolic Panel (11/02/22 06:18) Myoglobin Serum (11/02/22 06:18) Protime With Inr (11/02/22 06:18) Partial Thromboplastin Time (11/02/22 06:18) O2 (11/02/22 06:18) Monitor-Rhythm Ecg Trace Only (11/02/22 06:18) Ed Iv/Invasive Line Start (11/02/22 06:18) Troponin I Alissa (11/02/22 06:18) Nitroglycerin 0.4 Mg Btl 25's (Nitrostat (11/02/22 06:45) Aspirin Chewable Tablet (Baby Aspirin Ch (11/02/22 06:45) Clopidogrel Tablet (Plavix Tablet) (11/02/22 06:45) Ondansetron Injection (Zofran Injectio (11/02/22 07:45) Lidocaine 2% Viscous 15 Ml (Xylocaine Vi (11/02/22 07:45) Antacid Suspension (Mylanta Suspension (11/02/22 07:45) Troponin I Tama (11/02/22 08:20) Pantoprazole Tablet (Protonix Tablet) (11/02/22 09:45) Medications Given in ED Current Medications Medications Dose Ordered Sig/Vic Route Start Time Stop Time Status Last Admin Dose Admin Al Hydrox/Mg Hydrox/Simethicone 30 ml ONCE ONCE PO 11/02/22 07:45 11/02/22 07:46 DC 11/02/22 07:46 30 ML Aspirin 324 mg ONCE ONCE PO 11/02/22 06:45 11/02/22 06:46 DC 11/02/22 06:48 324 MG Clopidogrel Bisulfate 75 mg ONCE ONCE PO 11/02/22 06:45 11/02/22 06:46 DC 11/02/22 06:48 75 MG Lidocaine HCl 15 ml ONCE ONCE PO 11/02/22 07:45 11/02/22 07:46 DC 11/02/22 07:46 15 ML Nitroglycerin 0.4 mg UD PRN SL 11/02/22 06:45 11/02/22 07:24 DC 11/02/22 07:24 0.4 MG Ondansetron HCl 4 mg ONCE ONCE IVP 11/02/22 07:45 11/02/22 07:46 DC 11/02/22 07:46 4 MG Pantoprazole Sodium 40 mg ONCE ONCE PO 11/02/22 09:45 11/02/22 09:46 DC 11/02/22 09:51 40 MG Vital Signs/I&O 11/02/22 06:06 Temp 36.6 Pulse 79 Resp 16 B/P (MAP) 153/85 (107) Pulse Ox 99 O2 Delivery Room Air Blood Pressure Mean: 107 Progress Progress Note #1: Time: 06:57 Progress Note Patient has been interviewed and examined. EKG demonstrated no ischemia. Labs are pending. Aspirin, Plavix, and nitroglycerin are being administered. We will also give him his usual morning medications as long as his blood pressure remained stable after nitroglycerin. Pain sounds atypical in nature and seems to follow a pattern of GERD. If nitroglycerin does not improve his pain, we wi ll consider a trial of GI cocktail. Cardiac rule out and resolution of pain is important in this patient with notable coronary artery disease and stenting within the last year. Progress Note #2: Time: 07:45 Progress Note Patient still has lingering chest pain that seem relatively unaffected by nitroglycerin. He has had 3 doses of nitroglycerin. The first 2 were swallowed and the third was used sublingually. He had no change in his discomfort even after the sublingual dose. We will trial a GI cocktail with Zofran pretreatment. Pending response to this treatment, I will seek cardiology consultation. Initial work-up was otherwise unremarkable. Patient is generally comfortable at this time with a mild lingering chest discomfort. Progress Note #3: Time: 08:52 Progress Note Case was discussed with Dr. Vazquez. He agrees this patient may undergo atypical cardiac rule out in the emergency room and be discharged after a 2-hour troponin if troponin is negative and he continues to feel well. 2-hour troponin is pending at this time. Progress Note #4: Time: 09:46 Progress Note 2-hour troponin was negative. Patient is denying chest pain at this time. Based on the nature of his chest pain, it is likely to be of GI origin. However, I did emphasize the need to take any chest pain seriously given his history of significant coronary artery disease at a very young age. He expre ssed understanding. He was given a dose of Protonix prior to discharge. See discharge instructions for further discussion. Initial ECG Impression Date: Nov 02, 2022 Initial ECG Impression Time: 06:11 Initial ECG Rate: 80 Initial ECG Rhythm: Normal Sinus Initial ECG Intervals Chronic right bundle branch block Comment Sinus rhythm with no ST elevation or depression diagnostic of STEMI. Right bundle branch block. No axis deviation. Diagnostic Imaging Diagonstic Imaging: Xray Plain Films/CT/US/NM/MRI: chest Comments Chest x-ray reviewed by me and report reviewed. See report below: NAME: INGRID [place] MED REC#: [id number] PT STATUS: REG ER : 1985 PHYSICIAN: MAKI ANAYA MD ADMIT DATE: 11/02/22/ER Draft Date of Exam:11/02/22 CHEST 1 VIEW, AP/PA ONLY INDICATION: Chest pain. Comparison is made with prior examination of 12/08/21. FINDINGS: The heart size, mediastinal configuration, and pulmonary vascularity are within normal limits. There is no pleural effusion, pneumothorax, or pneumonia. The osseous structures are unremarkable. IMPRESSION: No acute cardiopulmonary abnormality. Dictated on workstation # [id number] Dict: 11/02/22 0702 Trans: 11/02/22 0704 [facility] [id number] Interpreted by: MARRY DOS SANTOS MD Departure Impression Primary Impression: Atypical chest pain Additional Impression: Coronary artery disease Qualified Codes: I25.10 - Atherosclerotic heart disease of [place] coronary artery without angina pectoris Disposition: HOME, SELF-CARE Condition: Improved Departure-Patient Inst. Decision time for Depature: 09:38 Referrals: POWER WALKER DO (PCP/Family) Primary Care Physician Patient Instructions: Acid Reflux and Gastroesophageal Reflux Disease in Adults, Chest Pain Add. Discharge Instructions: Your chest pain is more likely caused by acid reflux or a noncardiac issue given the nature of your response to medications in the ER and your lab work. However, you do have very serious coronary artery disease, so any chest pain should be taken very seriously. Please contact your cardiology office on Friday or Friday. You should schedule an appointment within a week to discuss with your director operations broadcast. Continue taking your medications as previously prescribed. Add Protonix as prescribed for acid reflux treatment. In addition, avoid the following: Eating large meals, eating close to bedtime, caffeine, carbonation, chocolate, citrus fruits and juices, tomato products, mints, alcohol, tobacco, spicy foods, fatty/greasy foods, NSAID medications such as ibuprofen or naproxen, and anything else you know irritates your stomach. Elevating the head of your bed or using several pillows at night may also help reduce acid reflux using gravity to your advantage. You may take Tylenol (acetaminophen) for pain and/or Tums for acute pain. If your pain does not promptly resolve with these treatments, return to the ER. Also return to the ER if the nature of your pain changes such that you are having pain with activity and not isolated to times when you are lying down flat. Also return to the ER if you are developing additional symptoms such as shortness of breath, sweating, lightheadedness, etc. Call with questions or concerns. All discharge instructions reviewed with patient and/or family. Voiced understanding. Scripts Pantoprazole Sodium (Protonix) 40 Mg Tablet. 40 MG PO DAILY, #30 TAB Prov: MAKI ANAYA MD 11/02/22 Copy Copies To 1: PJ PRINGLE MD FACP [facility] CCDS Copies To 2: POWER WALKER JOSHUA T MD Nov 02, 2022 06:24
[2022-11-02 06:25] LABS: BASOPHILS # (AUTO) 0.1 10^3/uL (0.0-0.1); BASOPHILS % (AUTO) 1 % (0-10); EOSINOPHILS # (AUTO) 0.1 10^3/uL (0.0-0.3); EOSINOPHILS % (AUTO) 1 % (0-10); HEMATOCRIT 44 % (40-54); HEMOGLOBIN 15.6 g/dL (13.3-17.7); LYMPHOCYTES # (AUTO) 3.1 10^3/uL (1.0-4.0); LYMPHOCYTES % (AUTO) 28 % (12-44); MEAN CORPUSCULAR HEMOGLOBIN 32 pg (25-34); MEAN CORPUSCULAR HGB CONC 35 g/dL (32-36); MEAN CORPUSCULAR VOLUME 91 fL (80-99); MEAN PLATELET VOLUME 9.8 fL (9.0-12.2); MONOCYTES # (AUTO) 0.7 10^3/uL (0.0-1.0); MONOCYTES % (AUTO) 6 % (0-12); NEUTROPHILS # (AUTO) 7.1 10^3/uL (1.8-7.8); NEUTROPHILS % (AUTO) 65 % (42-75); PLATELET COUNT 219 10^3/uL (130-400)
[2022-11-02 06:35] LABS: ALBUMIN 4.9 GM/DL (3.2-4.5)
[2022-11-02 06:36] LABS: CHLORIDE 104 MMOL/L (98-107); POTASSIUM 3.6 MMOL/L (3.6-5.0); SODIUM 140 MMOL/L (135-145)
[2022-11-02 06:37] LABS: CALCIUM 10.1 MG/DL (8.5-10.1)
[2022-11-02 06:38] LABS: GLUCOSE 128 MG/DL (70-105); TOTAL PROTEIN 8.1 GM/DL (6.4-8.2)
[2022-11-02 06:39] LABS: CARBON DIOXIDE 23 MMOL/L (21-32)
[2022-11-02 06:40] LABS: BILIRUBIN,TOTAL 0.6 MG/DL (0.1-1.0)
[2022-11-02 06:41] LABS: ALKALINE PHOSPHATASE 55 U/L (40-136); GFR ESTIMATED 112
[2022-11-02 06:43] LABS: BUN/CREATININE RATIO 18; PROTHROMBIN TIME PATIENT 13.4 SEC (12.2-14.7)
[2022-11-02 06:44] LABS: ALANINE AMINOTRANSFERASE 30 U/L (0-55); MAGNESIUM 2.4 MG/DL (1.6-2.4)
[2022-11-02] MEDS ORDERED: CLOPIDOGREL 75 MG (PLAVIX) TABLET PO ONE (06:45)
[2022-11-02] MEDS ORDERED: ASPIRIN 81 MG CHEW (CHILDREN'S ASA) PO ONE (06:45)
[2022-11-02] MEDS: NITROGLYCERIN 0.4 MG SL TABS BTL 25'S SL PRN ×3 (06:50→07:24)
--- NOTE | 2022-11-02 07:04 | Diagnostic Imaging Report ---
INDICATION: Chest pain. Comparison is made with prior examination of 12/08/21. FINDINGS: The heart size, mediastinal configuration, and pulmonary vascularity are within normal limits. There is no pleural effusion, pneumothorax, or pneumonia. The osseous structures are unremarkable. IMPRESSION: No acute cardiopulmonary abnormality. Dictated by: Dictated on workstation # [id number]
[2022-11-02] MEDS ORDERED: LIDOCAINE 2% VISCOUS 15 ML UDC PO ONE (07:45)
[2022-11-02] MEDS ORDERED: ANTACID SUSP 30 ML UDC (MYLANTA) PO ONE (07:45)
[2022-11-02] MEDS ORDERED: ONDANSETRON 4 MG/2 ML (SDV) Z0FRAN IVP ONE (07:45)
[2022-11-02] MEDS ORDERED: PANT40TA2 PO (09:42)
[2022-11-02] MEDS ORDERED: PANTOPRAZOLE 40 MG (PROTONIX) TAB PO ONE (09:45)
[2022-11-02 09:52] VITALS: BP 121/83
== END 2022-11-02 09:52 | disposition home or self-care (01) ==
LOC: EDUNIT# 05:58 → ER 06:03
DX: R07.89 Other chest pain (principal); I25.10 Atherosclerotic heart disease of native coronary artery without angina pectoris; E11.9 Type 2 diabetes mellitus without complications; I10 Essential (primary) hypertension; Z79.02 Long term (current) use of antithrombotics/antiplatelets; Z91.14 Patient's other noncompliance with medication regimen
CPT/HCPCS: 36415; 71045; 80053; 83735; 83874; 84484; 85025; 85610; 85730; 93005; 93041; 96374

== ENCOUNTER 2022-11-05 22:16 | Observation (INO) | payer BC ==
[~2022-11-05] VITALS: Ht 167.7 cm; Wt 83.0 kg
[~2022-11-05 22:16] MED LIST changes: +PANT40TA2 PO; +[UNRECOGNIZED DRUG - CODE]
[2022-11-05 22:36] LABS: BASOPHILS # (AUTO) 0.1 10^3/uL (0.0-0.1); BASOPHILS % (AUTO) 0 % (0-10); EOSINOPHILS # (AUTO) 0.1 10^3/uL (0.0-0.3); EOSINOPHILS % (AUTO) 0 % (0-10); HEMATOCRIT 43 % (40-54); HEMOGLOBIN 15.2 g/dL (13.3-17.7); LYMPHOCYTES % (AUTO) 25 % (12-44); MEAN CORPUSCULAR HEMOGLOBIN 32 pg (25-34); MEAN CORPUSCULAR HGB CONC 35 g/dL (32-36); MEAN CORPUSCULAR VOLUME 91 fL (80-99); MEAN PLATELET VOLUME 9.8 fL (9.0-12.2); MONOCYTES # (AUTO) 0.8 10^3/uL (0.0-1.0); MONOCYTES % (AUTO) 7 % (0-12); NEUTROPHILS # (AUTO) 8.1 10^3/uL (1.8-7.8); NEUTROPHILS % (AUTO) 67 % (42-75); PLATELET COUNT 227 10^3/uL (130-400)
[2022-11-05 22:44] LABS: ALBUMIN 4.7 GM/DL (3.2-4.5); CHLORIDE 101 MMOL/L (98-107); POTASSIUM 3.7 MMOL/L (3.6-5.0); SODIUM 136 MMOL/L (135-145)
[2022-11-05 22:45] LABS: CALCIUM 9.9 MG/DL (8.5-10.1)
[2022-11-05] MEDS ORDERED: ASPIRIN 81 MG CHEW (CHILDREN'S ASA) PO ONE (22:45)
[2022-11-05] MEDS ORDERED: PANTOPRAZOLE 40 MG (PROTONIX) VIAL IV ONE (22:45)
--- NOTE | 2022-11-05 22:45 | ED Chest Pain ---
General Chief Complaint: Chest Pain Stated Complaint: CHEST PAIN Nursing Triage Note: .Patient presented to the ER tonight with complaints of chest pain and feeling light headed. He advised he was seen Friday in the ER for the same complaint and was told to return if symptoms returned. He advised he was doing laundry at 2000 tonight when the pain began. He advised the pain is in his chest and radiates up his neck Source: patient Exam Limitations: no limitations (MELANIE HA) History of Present Illness Date Seen by Provider: Nov 05, 2022 Time Seen by Provider: 22:39 Initial Comments 37 M with a pmh of CAD, HTN, HLD presents to ED with complaint of chest pain that radiates to his left shoulder blade that started at 2000 this evening. Pt claims over the past two weeks when he "gets ready for bed" he begins to have some chest pressure and BL arm pain. Pt has had associated lightheadedness and nausea that came on after he rode his bike here today. Chest pain is described as a dull pressure diffusely across the anterior chest wall rated 4/10. Pt was recently seen for similar complaint on 11/02/22 and was dx with gerd. Pt claims his chest pain is very similar to his previous encounter and has not taking his PPI therapy today due to nighttime dosing. Notes compliance with all other medication. Denies any fever, chills, SOB. Timing/Duration: 1-3 hours Severity/Quality: moderate, tightness Location: central Radiation: shoulders (left shoulder ) Activities at Onset: none Prior CP/Workup: cardiac cath, echocardiography Modifying Factors: worse with lying down, worse with movement Associated Symptoms: No abdominal pain, No diaphoresis; dizziness; No fever/chills; nausea/vomiting (nause w/o emesis); No shortness of breath (MELANIE HA) Allergies and Home Medications Allergies Coded Allergies: shellfish derived (Verified Allergy, Unknown, 12/08/21) Patient Home Medication List Home Medication List Reviewed: Yes (SAMARIFER,MELANIE) Aspirin (Aspirin EC) 81 Mg Tablet.dr, 81 MG PO DAILY Prescribed by: SILVIA TANG on 12/09/21 1022 Atorvastatin Calcium (Atorvastatin Calcium) 80 Mg Tablet, 80 MG PO HS Prescribed by: SILVIA TANG on 12/09/21 1022 Blood Sugar Diagnostic (Accu-Chek Guide Test Strip) 1 Each Strip, (Reported) Entered as Reported by: EMILEE ALEJO on 11/02/22 0618 Clopidogrel Bisulfate (Clopidogrel) 75 Mg Tablet, 75 MG PO DAILY Prescribed by: SILVIA TANG on 12/09/21 1022 Lisinopril (Lisinopril) 2.5 Mg Tablet, 2.5 MG PO DAILY Prescribed by: PADMINI LOBATO on 12/10/21 0953 Metformin HCl (Metformin HCl) 500 Mg Tablet, 500 MG PO DAILY@07 Prescribed by: SILVIA TANG on 12/09/21 1023 Metoprolol Succinate (Metoprolol Succinate) 50 Mg Tab.er.24h, (Reported) Entered as Reported by: EMILEE ALEJO on 11/02/2218 Pantoprazole Sodium (Protonix) 40 Mg Tablet.dr, 40 MG PO DAILY Prescribed by: MAKI STOLL on 11/02/22 0942 Discontinued Medications Metoprolol Succinate (Toprol Xl) 25 Mg Tab.er.24h, 25 MG PO DAILY Discontinued Reason: No Longer Taking Prescribed by: PADMINI LOBATO on 12/10/21 0952 Review of Systems Review of Systems Constitutional: No chills, No diaphoresis; dizziness EENTM: No Blurred Vision, No Nose Congestion Respiratory: Denies Cough, Denies Shortness of Air Cardiovascular: Chest Pain; Denies Edema; Lightheadedness Gastrointestinal: Denies Abdominal Pain, Denies Constipated, Denies Diarrhea; Nausea Genitourinary: Denies Burning, Denies Frequency Musculoskeletal: No neck pain; other (LT shoulder pain) Skin: no symptoms reported Psychiatric/Neurological: No Symptoms Reported Endocrine: Denies Excessive Sweating, Denies Flushing Hematologic/Lymphatic: No Symptoms Reported (SAUCE,MELANIE) Past Dipnppo-Lelicr-Ndqlkh Hx Patient Social History Tobacco Use?: No Substance use?: No Alcohol Use?: No (SAUCE,MELANIE) Immunizations Up To Date First/Initial COVID19 Vaccinat: X2 Second COVID19 Vaccination Porter: X2 Third COVID19 Vaccination Date: X2 (SAUCE,MELANIE) Past Medical History Surgery/Hospitalization HX: POSSBILE DIABETES, HTN, STENTS Surgeries: Yes Coronary Stent Respiratory: No Cardiac: Yes Coronary Artery Disease, High Cholesterol, Hypertension Neurological: No Genitourinary: No Gastrointestinal: No Musculoskeletal: No Endocrine: Yes Diabetes, Non-Insulin dep HEENT: No Cancer: No Psychosocial: No Integumentary: No (MELANIE HA) Family Medical History Heart Disease (MELANIE HA) Physical Exam Vital Signs Vital Signs - First Documented 11/05/22 22:19 Temp 36.6 Pulse 93 Resp 18 B/P (MAP) 127/90 (102) O2 Delivery Room Air (INOCENCIA LAZAR MD) Vital Signs Capillary Refill : Less Than 3 Seconds (MELANIE HA) Height, Weight, BMI Height: '" Weight: lbs. oz. kg; 30.00 BMI Method: General Appearance: No Apparent Distress, WD/WN HEENT: PERRL/EOMI, Normal ENT Inspection Neck: Normal Inspection, Non Tender, Supple Respiratory: Lungs Clear, Normal Breath Sounds, No Accessory Muscle Use, No Respiratory Distress, Other (chest wall non tender to palpation ) Cardiovascular: Regular Rate, Rhythm, No Edema, No Murmur, Normal Peripheral Pulses Gastrointestinal: Normal Bowel Sounds, No Organomegaly, No Pulsatile Mass, Non Tender, Soft Extremity: Normal Capillary Refill, Normal Inspection, Non Tender, No Calf Tenderness, No Pedal Edema Neurologic/Psychiatric: Alert, Oriented x3, Normal Mood/Affect Skin: Normal Color, Warm/Dry Lymphatic: No Adenopathy (MELANIE HA) Progress/Results/Core Measures Results/Orders Lab Results Laboratory Tests Test 11/05/22 22:21 Range/Units White Blood Count 12.0 H 4.3-11.0 10^3/uL Red Blood Count 4.74 4.30-5.52 10^6/uL Hemoglobin 15.2 13.3-17.7 g/dL Hematocrit 43 40-54 % Mean Corpuscular Volume 91 80-99 fL Mean Corpuscular Hemoglobin 32 25-34 pg Mean Corpuscular Hemoglobin Concent 35 32-36 g/dL Red Cell Distribution Width 12.8 10.0-14.5 % Platelet Count 227 130-400 10^3/uL Mean Platelet Volume 9.8 9.0-12.2 fL Immature Granulocyte % (Auto) 0 % Neutrophils (%) (Auto) 67 42-75 % Lymphocytes (%) (Auto) 25 12-44 % Monocytes (%) (Auto) 7 0-12 % Eosinophils (%) (Auto) 0 0-10 % Basophils (%) (Auto) 0 0-10 % Neutrophils # (Auto) 8.1 H 1.8-7.8 10^3/uL Lymphocytes # (Auto) 3.0 1.0-4.0 10^3/uL Monocytes # (Auto) 0.8 0.0-1.0 10^3/uL Eosinophils # (Auto) 0.1 0.0-0.3 10^3/uL Basophils # (Auto) 0.1 0.0-0.1 10^3/uL Immature Granulocyte # (Auto) 0.0 0.0-0.1 10^3/uL Prothrombin Time 14.0 12.2-14.7 SEC INR Comment 1.0 0.8-1.4 Activated Partial Thromboplast Time 26 24-35 SEC Sodium Level 136 135-145 MMOL/L Potassium Level 3.7 3.6-5.0 MMOL/L Chloride Level 101 98-107 MMOL/L Carbon Dioxide Level 23 21-32 MMOL/L Anion Gap 12 5-14 MMOL/L Blood Urea Nitrogen 16 7-18 MG/DL Creatinine 0.99 0.60-1.30 MG/DL Estimat Glomerular Filtration Rate 100 BUN/Creatinine Ratio 16 Glucose Level 124 H 70-105 MG/DL Calcium Level 9.9 8.5-10.1 MG/DL Corrected Calcium 8.5-10.1 MG/DL Magnesium Level 2.0 1.6-2.4 MG/DL Total Bilirubin 0.7 0.1-1.0 MG/DL Aspartate Amino Transf (AST/SGOT) 21 5-34 U/L Alanine Aminotransferase (ALT/SGPT) 29 0-55 U/L Alkaline Phosphatase 50 40-136 U/L Myoglobin 70.4 10.0-92.0 NG/ML Troponin I < 0.028 <0.028 NG/ML Total Protein 7.7 6.4-8.2 GM/DL Albumin 4.7 H 3.2-4.5 GM/DL (INOCENCIA LAZAR MD) My Orders Orders - INOCENCIA LAZAR MD Ekg Tracing (11/05/22 22:17) Cbc With Automated Diff (11/05/22 22:30) Magnesium (11/05/22 22:30) Chest 1 View, Ap/Pa Only (11/05/22 22:30) Comprehensive Metabolic Panel (11/05/22 22:30) Myoglobin Serum (11/05/22 22:30) Protime With Inr (11/05/22 22:30) Partial Thromboplastin Time (11/05/22 22:30) O2 (11/05/22 22:30) Monitor-Rhythm Ecg Trace Only (11/05/22 22:30) Lipid Panel (11/06/22 06:00) Ed Iv/Invasive Line Start (11/05/22 22:30) Troponin I Alissa (11/05/22 22:30) Aspirin Chewable Tablet (Baby Aspirin Ch (11/05/22 22:45) Pantoprazole Injection (Protonix Injecti (11/05/22 22:45) (INOCENCIA LAZAR MD) Medications Given in ED Current Medications Medications Dose Ordered Sig/Vic Route Start Time Stop Time Status Last Admin Dose Admin Aspirin 324 mg ONCE ONCE PO 11/05/22 22:45 11/05/22 22:46 DC 11/05/22 22:44 324 MG Pantoprazole 40 mg ONCE ONCE IV 11/05/22 22:45 11/05/22 22:46 DC 11/05/22 22:45 40 MG (INOCENCIA LAZAR MD) Vital Signs/I&O 11/05/22 22:19 Temp 36.6 Pulse 93 Resp 18 B/P (MAP) 127/90 (102) O2 Delivery Room Air (INOCENCIA LAZAR MD) Blood Pressure Mean: 102 Progress Progress Note : Time: 23:27 Progress Note patient seen and evaluated by me. I have reviewed and agree with the medical student's documentation. 37yo with CAD, stents in Dec 2021. Compliant with daily medications, has lost 40# and come off DM meds. Never a smoker. Onset chest pressure/tightness at around 630pm/ rad into anterior neck, then later to courtney shoulders. rode electric bike to hospital, nauseated and LH. By the time he got here and settled into the room, pain down to a 1. No recent illnesses. Labs reviewed and WNL. I am unable to eval CXR at this time, it has not crossed over. EKG - no findings concerning for STEMI. I discussed the case with Dr Vazquez and his PCP, will admit for re-eval in the am. Patient is comfortable with plan of care. (INOCENCIA LAZAR MD) Initial ECG Impression Date: Nov 05, 2022 Initial ECG Impression Time: 22:22 Initial ECG Rate: 90 Initial ECG Rhythm: Normal Sinus Comment low voltage throughout; no ectopy; no ST elevation or depression; RBBB QRS 120 (INOCENCIA LAZAR MD) Diagnostic Imaging Diagonstic Imaging: Xray Plain Films/CT/US/NM/MRI: chest (INOCENCIA LAZAR MD) Departure Communication (Admissions) Time/Spoke to Admitting Phy: 23:[address] Walker Time/Spoke to Consulting Phy: 23:[address] Vazquez (INOCENCIA LAZAR MD) Impression Primary Impression: Chest pain Qualified Codes: R07.9 - Chest pain, unspecified Additional Impression: CAD (coronary artery disease) Qualified Codes: I25.119 - Atherosclerotic heart disease of [place] coronary artery with unspecified angina pectoris Disposition: ADMITTED INPATIENT Condition: Stable Admissions Decision to Admit Reason: Admit from ER (General) Decision to Admit/Date: Nov 05, 2022 Time/Decision to Admit Time: 23:25 (INOCENCIA LAZAR MD) Departure-Patient Inst. Referrals: POWER WALKER DO (PCP/Family) Primary Care Physician Verification and Attestation of Medical Student E/M Service A medical student performed and documented this service in my presence. I reviewed and verified all information documented by the medical student and made modifications to such information, when appropriate. I personally performed the physical exam and medical decision making. Inocencia Lazar, Nov 05, 2022,23:25 (INOCENCIA LAZAR MD) MELANIE HA Nov 05, 2022 22:45 INOCENCIA LAZAR MD Nov 05, 2022 23:26
[2022-11-05 22:46] LABS: GLUCOSE 124 MG/DL (70-105); TOTAL PROTEIN 7.7 GM/DL (6.4-8.2)
[2022-11-05 22:47] LABS: CARBON DIOXIDE 23 MMOL/L (21-32)
[2022-11-05 22:48] LABS: BILIRUBIN,TOTAL 0.7 MG/DL (0.1-1.0)
[2022-11-05 22:50] LABS: ALKALINE PHOSPHATASE 50 U/L (40-136); CREATININE SERUM 0.99 MG/DL (0.60-1.30); GFR ESTIMATED 100
[2022-11-05 22:51] LABS: BUN/CREATININE RATIO 16
[2022-11-05 22:53] LABS: ALANINE AMINOTRANSFERASE 29 U/L (0-55)
[2022-11-06] VITALS (12 sets, daily range): BP systolic 96–130; BP diastolic 62–89
[2022-11-06] MEDS ORDERED: ONDANSETRON 4 MG/2 ML (SDV) Z0FRAN IVP PRN (01:30)
[2022-11-06] MEDS ORDERED: morphine INJ 4 MG/ML 1 ML (VIAL/SYRINGE) IV PRN (01:30)
[2022-11-06] MEDS ORDERED: NITROGLYCERIN 0.4 MG SL TABS BTL 25'S SL PRN (01:30)
[2022-11-06 05:59] LABS: TRIGLYCERIDES 101 MG/DL (<150); VLDL CHOLESTEROL 20 MG/DL (5-40)
[2022-11-06] MEDS: CATHETER FLUSH 10 ML SYR IVP SCH ×3 (06:03→21:48)
[2022-11-06] MEDS: PANTOPRAZOLE 40 MG (PROTONIX) TAB PO SCH (06:03)
[2022-11-06 06:04] LABS: CHOLESTEROL 138 MG/DL (< 200)
[2022-11-06 06:05] LABS: HDL CHOLESTEROL 36 MG/DL (40-60)
--- NOTE | 2022-11-06 07:30 | Diagnostic Imaging Report ---
HISTORY: Chest pain TECHNIQUE: Frontal view the chest COMPARISON: 11/02/2022 FINDINGS: Lung volumes are large. No consolidation is seen. There is no pleural effusion or pneumothorax. The cardiac silhouette is normal in size. IMPRESSION: 1. Large lung volumes with no acute pulmonary abnormalities seen. Dictated by: Dictated on workstation # [id number]
--- NOTE | 2022-11-06 09:15 | Consultation-Cardiology ---
HPI-Cardiology Cardiology Consultation: Date of Consultation 11/06/22 Date of Admission Attending Physician Cristela Walker DO Admitting Physician Admitting Physician: Cristela Wakler DO Attending Physician: Cristela Walker DO Consulting Physician PADMINI LEON DBX-Hhwlos-Ytlyko Hx Patient Social History Have you traveled recently?: No Alcohol Use?: No Pt feels they are or have been: No Immunizations Up To Date Date of Influenza Vaccine: Aug 07, 2021 Past Medical History PMH As described under Assessment. Family Medical History Family Medical History: Does not report fam h/o early CAD or SCD Allergies and Home Medications Allergies Coded Allergies: shellfish derived (Verified Allergy, Unknown, 12/08/21) Patient Home Medication List Aspirin (Aspirin EC) 81 Mg Tablet.dr, 81 MG PO DAILY, (Reported) Entered as Reported by: EVELYNE POP on 11/06/221242 Last Action: Reviewed Atorvastatin Calcium (Atorvastatin Calcium) 80 Mg Tablet, 80 MG PO DAILY, (Reported) Entered as Reported by: EVELYNE POP on 11/06/221242 Last Action: Reviewed Clopidogrel Bisulfate (Clopidogrel) 75 Mg Tablet, 75 MG PO DAILY, (Reported) Entered as Reported by: EVELYNE POP on 11/06/221242 Last Action: Reviewed Lisinopril (Lisinopril) 2.5 Mg Tablet, 2.5 MG PO DAILY, (Reported) Entered as Reported by: EVELYNE POP on 11/06/221242 Last Action: Reviewed Metoprolol Succinate (Metoprolol Succinate) 50 Mg Tab.er.24h, 50 MG PO DAILY, (Reported) Entered as Reported by: EMILEE ALEJO on 11/02/22 0618 Last Action: Reviewed Pantoprazole Sodium (Pantoprazole Sodium) 40 Mg Tablet.dr, 40 MG PO HS, (Reported) Entered as Reported by: EVELYNE POP on 11/06/221242 Last Action: Reviewed Discontinued Medications Aspirin (Aspirin EC) 81 Mg Tablet.dr, 81 MG PO DAILY Discontinued Reason: Duplicate Order Prescribed by: SILVIA TANG on 12/09/21 1022 Last Action: Discontinued Atorvastatin Calcium (Atorvastatin Calcium) 80 Mg Tablet, 80 MG PO HS Discontinued Reason: Duplicate Order Prescribed by: SILVIA TANG on 12/09/21 1022 Last Action: Discontinued Blood Sugar Diagnostic (Accu-Chek Guide Test Strip) 1 Each Strip, (Reported) Discontinued Reason: Duplicate Order Entered as Reported by: EMILEE ALEJO on 11/02/22 0618 Last Action: Discontinued Clopidogrel Bisulfate (Clopidogrel) 75 Mg Tablet, 75 MG PO DAILY Discontinued Reason: Duplicate Order Prescribed by: SILVIA TANG on 12/09/21 1022 Last Action: Discontinued Lisinopril (Lisinopril) 2.5 Mg Tablet, 2.5 MG PO DAILY Discontinued Reason: Duplicate Order Prescribed by: PADMINI LOBATO on 12/10/21 0953 Last Action: Discontinued Metformin HCl (Metformin HCl) 500 Mg Tablet, 500 MG PO DAILY@07 Discontinued Reason: Duplicate Order Prescribed by: SILVIA TANG on 12/09/21 1023 Last Action: Discontinued Metoprolol Succinate (Toprol Xl) 25 Mg Tab.er.24h, 25 MG PO DAILY Discontinued Reason: No Longer Taking Prescribed by: PADMINI LOBATO on 12/10/21 0952 Pantoprazole Sodium (Protonix) 40 Mg Tablet.dr, 40 MG PO DAILY Discontinued Reason: Duplicate Order Prescribed by: MAKI STOLL on 11/02/22 0942 Last Action: Discontinued Physical Exam-Cardiology Physical Exam Vital Signs/I&O 11/06/22 11/06/22 11/06/22 11/06/22 03:00 04:00 07:02 08:00 Temp 37.1 36.1 Pulse 66 64 64 64 Resp 12 14 16 B/P (MAP) 98/64 (75) 96/62 (73) 103/68 (80) Pulse Ox 95 96 96 O2 Delivery Room Air Room Air Room Air 11/06/22 11/06/22 11/06/22 08:00 12:00 13:14 Temp 37.2 Pulse 82 85 Resp 12 B/P (MAP) 119/71 (87) Pulse Ox 98 O2 Delivery Room Air Room Air Capillary Refill : Less Than 3 Seconds Data Review Labs Laboratory Tests 11/05/22 22:21: White Blood Count 12.0H, Red Blood Count 4.74, Hemoglobin 15.2, Hematocrit 43, Mean Corpuscular Volume 91, Mean Corpuscular Hemoglobin 32, Mean Corpuscular Hemoglobin Concent 35, Red Cell Distribution Width 12.8, Platelet Count 227, Mean Platelet Volume 9.8, Immature Granulocyte % (Auto) 0, Neutrophils (%) (Auto) 67, Lymphocytes (%) (Auto) 25, Monocytes (%) (Auto) 7, Eosinophils (%) (Auto) 0, Basophils (%) (Auto) 0, Neutrophils # (Auto) 8.1H, Lymphocytes # (Auto) 3.0, Monocytes # (Auto) 0.8, Eosinophils # (Auto) 0.1, Basophils # (Auto) 0.1, Immature Granulocyte # (Auto) 0.0, Prothrombin Time 14.0, INR Comment 1.0, Activated Partial Thromboplast Time 26, Sodium Level 136, Potassium Level 3.7, Chloride Level 101, Carbon Dioxide Level 23, Anion Gap 12, Blood Urea Nitrogen 16, Creatinine 0.99, Estimat Glomerular Filtration Rate 100, BUN/Creatinine Ratio 16, Glucose Level 124H, Calcium Level 9.9, Corrected Calcium , Magnesium Level 2.0, Total Bilirubin 0.7, Aspartate Amino Transf (AST/SGOT) 21, Alanine Aminotransferase (ALT/SGPT) 29, Alkaline Phosphatase 50, Myoglobin 70.4, Troponin I < 0.028, Total Protein 7.7, Albumin 4.7H 11/06/22 05:12: Troponin I < 0.028, Triglycerides Level 101, Cholesterol Level 138, LDL Cholesterol Direct 91, VLDL Cholesterol 20, HDL Cholesterol 36L Radiology NAME: INGRID [facility] REC#: [id number] PT STATUS: ADM Letty : 1985 PHYSICIAN: INOCENCIA LAZAR MD ADMIT DATE: 11/05/22/[facility] Draft Date of Exam:11/05/22 CHEST 1 VIEW, AP/PA ONLY HISTORY: Chest pain TECHNIQUE: Frontal view the chest COMPARISON: 11/02/2022 FINDINGS: Lung volumes are large. No consolidation is seen. There is no pleural effusion or pneumothorax. The cardiac silhouette is normal in size. IMPRESSION: 1. Large lung volumes with no acute pulmonary abnormalities seen. Dictated on workstation # [id number] Dict: 11/06/22 0728 Trans: 11/06/22 0730 [facility] [id number] Interpreted by: MEHUL NINO MD , treated with PCI to LAD (see below) - Echo on 12/08/21: LVEF 45-50%, anteroapical hypokinesis CAD - Cardiac cath on 12/08/21: near-total mid vessel occlusion and severe distal stenosis of the left anterior descending. Following deployment of Adalid 2.5 x 23 mm stent to the mid lesion and [place] Resolute 2.0 x 12 mm stent to the distal lesion, there is no significant residual stenosis. Left circumflex artery is nondominant and has mild plaques. Right coronary artery is large and dominant and has diffuse mild plaques and the terminal posterolateral branch of the right coronary artery has 60% to 70% proximal stenosis. Mild elevation of left ventricular end-diastolic pressure (16 mmHg). Anteroapical hypokinesis. Left ventricular ejection fraction approximately 45%. Hypertension - controlled DM II - mangaged by PADMINI CORNELIUS Nov 06, 2022 09:15
--- NOTE | 2022-11-06 09:34 | Consultation-Cardiology ---
HPI-Cardiology Cardiology Consultation: Date of Consultation 11/06/22 Time Seen by a Provider: 09:10 Date of Admission Attending Physician Cristela Walker DO Admitting Physician Admitting Physician: Cristela Walker DO Attending Physician: Cristela Walker DO Consulting Physician PJ PRINGLE MD, MA, FACP, FACC, FSCAI, CCDS HPI: Chief Complaint: Chest discomfort 37 yo man admitted with chest discomfort on 11/05/[address] Walker. Chest discomfort, midsternal, pressure-like, mild to mod, radiating to back, no associated symptoms other than some dizziness, w/o aggravating or relieving factors, self-resolving. Has been having somewhat similar symptoms daily at bedtime, radiating to shoulders, self-resolving, mild. No n/v/d. No swelling. No shortness of breath. No palp or syncope. Intermittent dizziness don with posture changes Review of Systems-Cardiology Review of Systems Constitutional: malaise, tiredness; No weight loss, No weight gain Eyes: No vision change Ears/Nose/Throat: No ear discharge, No nasal drainage, No recent hearing loss Respiratory: As described under HPI Cardiovascular: As described under HPI Gastrointestinal: As described under HPI Genitourinary: No dysuria, No hematuria Musculoskeletal: No back pain, No joint pain Skin: No rash, No ulcerations Psychiatric/Neurological: No seizure, No focal weakness, No syncope Hematologic: No bleeding abnormalities NAQ-Gebqpm-Fzvjwp Hx Patient Social History Have you traveled recently?: No Alcohol Use?: No Pt feels they are or have been: No Immunizations Up To Date Date of Influenza Vaccine: Aug 07, 2021 Past Medical History PMH As described under Assessment. Family Medical History Family Medical History: Does not report fam h/o early CAD or SCD Allergies and Home Medications Allergies Coded Allergies: shellfish derived (Verified Allergy, Unknown, 12/08/21) Patient Home Medication List Home Medication List Reviewed: Yes Aspirin (Aspirin EC) 81 Mg Tablet.dr, 81 MG PO DAILY Prescribed by: SILVIA TANG on 12/09/21 1022 Atorvastatin Calcium (Atorvastatin Calcium) 80 Mg Tablet, 80 MG PO HS Prescribed by: SILVIA TANG on 12/09/21 1022 Blood Sugar Diagnostic (Accu-Chek Guide Test Strip) 1 Each Strip, (Reported) Entered as Reported by: EMILEE ALEJO on 11/02/22 0618 Clopidogrel Bisulfate (Clopidogrel) 75 Mg Tablet, 75 MG PO DAILY Prescribed by: SILVIA TANG on 12/09/21 1022 Lisinopril (Lisinopril) 2.5 Mg Tablet, 2.5 MG PO DAILY Prescribed by: PADMINI LOBATO on 12/10/21 0953 Metformin HCl (Metformin HCl) 500 Mg Tablet, 500 MG PO DAILY@07 Prescribed by: SILVIA TANG on 12/09/21 1023 Metoprolol Succinate (Metoprolol Succinate) 50 Mg Tab.er.24h, (Reported) Entered as Reported by: EMILEE ALEJO on 11/02/2218 Pantoprazole Sodium (Protonix) 40 Mg Tablet.dr, 40 MG PO DAILY Prescribed by: MAKI STOLL on 11/02/22 0942 Discontinued Medications Metoprolol Succinate (Toprol Xl) 25 Mg Tab.er.24h, 25 MG PO DAILY Discontinued Reason: No Longer Taking Prescribed by: PADMINI LOBATO on 12/10/21 0952 Physical Exam-Cardiology Physical Exam Vital Signs/I&O 11/05/22 11/05/22 11/06/22 11/06/22 22:19 23:51 00:00 00:15 Temp 36.6 36.6 36.8 Pulse 93 87 86 87 Resp 18 18 31 B/P (MAP) 127/90 (102) 118/71 123/79 (94) 122/84 (97) Pulse Ox 97 99 100 O2 Delivery Room Air Room Air Room Air Room Air 11/06/22 11/06/22 11/06/22 11/06/22 00:30 00:30 00:45 01:00 Pulse 89 89 74 Resp 28 8 B/P (MAP) 115/87 (96) 130/89 (103) Pulse Ox 98 100 98 O2 Delivery Room Air Room Air Room Air 11/06/22 11/06/22 11/06/22 11/06/22 01:00 02:00 03:00 04:00 Temp 37.1 Pulse 74 73 66 64 Resp 17 12 14 B/P (MAP) 122/78 (93) 110/70 (83) 98/64 (75) 96/62 (73) Pulse Ox 97 97 95 96 O2 Delivery Room Air Room Air Room Air Room Air 11/06/22 11/06/22 07:02 08:00 Temp 36.1 Pulse 64 64 Resp 16 B/P (MAP) 103/68 (80) Pulse Ox 96 O2 Delivery Room Air Capillary Refill : Less Than 3 Seconds Constitutional: AAO x 3, well-developed, well-nourished HEENT: EOMI, hearing is well preserved; No xanthelasmas are seen Neck: carotid pulses are 2 + bilaterally, with good upstrokes Respiratory: No accessory muscle use; other (good, bilateral air entry) Cardiovascular: regular rate-rhythm, S1 and S2, systolic murmur (soft EDWIN at card base) Gastrointestinal: No tender; soft; No guarding, No rebound; audible bowel sounds Extremities: No clubbing, No cyanosis, No significant edema Neurologic/Psychiatric: oriented x 3, other (moves all limbs equally) Skin: No rash on exposed areas, No ulcerations on exposed areas Data Review Labs Laboratory Tests 11/05/22 22:21: White Blood Count 12.0H, Red Blood Count 4.74, Hemoglobin 15.2, Hematocrit 43, Mean Corpuscular Volume 91, Mean Corpuscular Hemoglobin 32, Mean Corpuscular Hemoglobin Concent 35, Red Cell Distribution Width 12.8, Platelet Count 227, Mean Platelet Volume 9.8, Immature Granulocyte % (Auto) 0, Neutrophils (%) (Auto) 67, Lymphocytes (%) (Auto) 25, Monocytes (%) (Auto) 7, Eosinophils (%) (Auto) 0, Basophils (%) (Auto) 0, Neutrophils # (Auto) 8.1H, Lymphocytes # (Auto) 3.0, Monocytes # (Auto) 0.8, Eosinophils # (Auto) 0.1, Basophils # (Auto) 0.1, Immature Granulocyte # (Auto) 0.0, Prothrombin Time 14.0, INR Comment 1.0, Activated Partial Thromboplast Time 26, Sodium Level 136, Potassium Level 3.7, Chloride Level 101, Carbon Dioxide Level 23, Anion Gap 12, Blood Urea Nitrogen 16, Creatinine 0.99, Estimat Glomerular Filtration Rate 100, BUN/Creatinine Ratio 16, Glucose Level 124H, Calcium Level 9.9, Corrected Calcium , Magnesium Level 2.0, Total Bilirubin 0.7, Aspartate Amino Transf (AST/SGOT) 21, Alanine Aminotransferase (ALT/SGPT) 29, Alkaline Phosphatase 50, Myoglobin 70.4, Troponin I < 0.028, Total Protein 7.7, Albumin 4.7H 11/06/22 05:12: Troponin I < 0.028, Triglycerides Level 101, Cholesterol Level 138, LDL Cholesterol Direct 91, VLDL Cholesterol 20, HDL Cholesterol 36L Laboratory Tests 11/05/22 22:21 A/P-Cardiology Assessment/Admission Diagnosis Chest discomfort w/o evidence of ACS CAD and h/o ischemic cardiomyopathy - Ac NSTEMI on 12-08-21, treated with PCI to LAD (see below) - Cardiac cath on 12/08/21: near-total mid vessel occlusion and severe distal stenosis of the left anterior descending. Following deployment of Adalid 2.5 x 23 mm stent to the mid lesion and Adalid Resolute 2.0 x 12 mm stent to the distal lesion, there is no significant residual stenosis. Left circumflex artery is n ondominant and has mild plaques. Right coronary artery is large and dominant and has diffuse mild plaques and the terminal posterolateral branch of the right coronary artery has 60% to 70% proximal stenosis. Mild elevation of left ventricular end-diastolic pressure (16 mmHg). Anteroapical hypokinesis. Left ventricular ejection fraction approximately 45%. - Echo on 12/08/21: LVEF 45-50%, anteroapical hypokinesis - Abnormal ECG. ECG on 11/05 and 11/06/22: Sinus, intermittent RBBB pattern, old ASMI Hypertension - controlled. Currently somewhat low bp DM II - mangaged by PCP Discussion and Recomendations * Continue DAPT * Continue statin * Hold beta-ramandeep and LEANN-inhib (low bp) * Echo * iv fluids * MPI * Monitor labs PJ PRINGLE MD FACP FAC CCDS Nov 06, 2022 09:34
[2022-11-06] MEDS ORDERED: FAMOTIDINE 20 MG (PEPCID) TABLET PO PRN (09:45)
[2022-11-06] MEDS: ASPIRIN E.C. 81 MG (ECOTRIN) TAB PO SCH (09:59)
[2022-11-06] MEDS ORDERED: REGADENOSON 0.4 MG/5 ML SYR (LEXISCAN) IV NR (10:00)
[2022-11-06] MEDS ORDERED: CLOPIDOGREL 300 MG (PLAVIX) TABLET PO NR (10:00)
[2022-11-06] MEDS ORDERED: LISI2.5T13 PO (12:43)
[2022-11-06] MEDS ORDERED: PANT40TA52 PO (12:43)
[2022-11-06] MEDS ORDERED: ASPI-1238 PO (12:43)
[2022-11-06] MEDS ORDERED: CLOP75TA28 PO (12:43)
[2022-11-06] MEDS ORDERED: ATOR80TA76 PO (12:43)
--- NOTE | 2022-11-06 18:00 | History & Physical ---
History of Present Illness History of Present Illness Reason for visit/HPI This is a 37 year old male with a known history of CAD with stent placement in December of 2021 who presented to the emergency room with substernal chest pain. The pain was radiating to his neck and around to his upper shoulders and he had associated dizziness and nausea. When he arrived at the emergency room his pain was down to a 1 and he has had no pain since his ER visit. He was found to be mildly hypotensive in the emergency room. His EKG showed no acute S-T segment changes and his cardiac enzymes were normal. Due to his history of CAD, he will be admitted to the cardiac stepdown for further evaluation. Date of Admission Nov 05, 2022 at 23:20 Date Seen by a Provider: Nov 06, 2022 Time Seen by a Provider: 12:35 I consulted on this patient on 11/06/22 17:54 Attending Physician Power Walker DO Admitting Physician Admitting Physician: Power Walker DO Attending Physician: Power Walker DO Consult Allergies and Home Medications Allergies Coded Allergies: shellfish derived (Verified Allergy, Unknown, 12/08/21) Patient Home Medication List Home Medication List Reviewed: Yes Aspirin (Aspirin EC) 81 Mg Tablet., 81 MG PO DAILY, (Reported) Entered as Reported by: EVELYNE POP on 11/06/221242 Last Action: Reviewed Atorvastatin Calcium (Atorvastatin Calcium) 80 Mg Tablet, 80 MG PO DAILY, (Reported) Entered as Reported by: EVELYNE POP on 11/06/221242 Last Action: Reviewed Clopidogrel Bisulfate (Clopidogrel) 75 Mg Tablet, 75 MG PO DAILY, (Reported) Entered as Reported by: EVELYNE POP on 11/06/221242 Last Action: Reviewed Lisinopril (Lisinopril) 2.5 Mg Tablet, 2.5 MG PO DAILY, (Reported) Entered as Reported by: EVELYNE POP on 11/06/221242 Last Action: Reviewed Metoprolol Succinate (Metoprolol Succinate) 50 Mg Tab.er.24h, 50 MG PO DAILY, (Reported) Entered as Reported by: EMILEE ALEJO on 11/02/22 0618 Last Action: Reviewed Pantoprazole Sodium (Pantoprazole Sodium) 40 Mg Tablet.dr, 40 MG PO HS, (Reported) Entered as Reported by: EVELYNE POP on 11/06/22 1243 Last Action: Reviewed Discontinued Medications Aspirin (Aspirin EC) 81 Mg Tablet., 81 MG PO DAILY Discontinued Reason: Duplicate Order Prescribed by: SILVIA TANG on 12/09/21 1022 Last Action: Discontinued Atorvastatin Calcium (Atorvastatin Calcium) 80 Mg Tablet, 80 MG PO HS Discontinued Reason: Duplicate Order Prescribed by: SILVIA TANG on 12/09/21 1022 Last Action: Discontinued Blood Sugar Diagnostic (Accu-Chek Guide Test Strip) 1 Each Strip, (Reported) Discontinued Reason: Duplicate Order Entered as Reported by: EMILEE ALEJO on 11/02/22 0618 Last Action: Discontinued Clopidogrel Bisulfate (Clopidogrel) 75 Mg Tablet, 75 MG PO DAILY Discontinued Reason: Duplicate Order Prescribed by: SILVIA TANG on 12/09/21 1022 Last Action: Discontinued Lisinopril (Lisinopril) 2.5 Mg Tablet, 2.5 MG PO DAILY Discontinued Reason: Duplicate Order Prescribed by: PADMINI LOBATO on 12/10/21 0953 Last Action: Discontinued Metformin HCl (Metformin HCl) 500 Mg Tablet, 500 MG PO DAILY@07 Discontinued Reason: Duplicate Order Prescribed by: SILVIA TANG on 12/09/21 1023 Last Action: Discontinued Metoprolol Succinate (Toprol Xl) 25 Mg Tab.er.24h, 25 MG PO DAILY Discontinued Reason: No Longer Taking Prescribed by: PADMINI LOBATO on 12/10/21 0952 Pantoprazole Sodium (Protonix) 40 Mg Tablet., 40 MG PO DAILY Discontinued Reason: Duplicate Order Prescribed by: MAKI STOLL on 11/02/22 0942 Last Action: Discontinued Past Avilmqe-Cciesj-Vweikz Hx Patient Social History Tobacco Use?: No Use of E-Cig and/or Vaping dev: No Substance use?: No Alcohol Use?: No Pt feels they are or have been: No Immunizations Up To Date Date of Influenza Vaccine: Aug 07, 2021 First/Initial COVID19 Vaccinat: X2 Second COVID19 Vaccination Porter: X2 Tetanus Booster (TDap): Unknown Current Status Advance Directives: No Advance Directive Location: Home Communicates: Verbally Primary Language: [place]ian Preferred Spoken Language: [place]ian Is interpretation needed?: No Implanted or Applied Medical D: Stents Past Medical History Surgeries: Coronary Stent Coronary Artery Disease, High Cholesterol, Hypertension Diabetes, Non-Insulin dep Family Medical History Heart Disease Review of Systems Constitutional: weakness EENTM: No see HPI, No no symptoms reported, No ear discharge, No hearing loss, No ear pain, No blurred vision, No double vision, No eye pain, No tearing, No vision loss, No dental problems, No hoarseness, No mouth pain, No mouth swelling, No epistaxis, No nose congestion, No nose pain, No throat pain, No throat swelling, No other Respiratory: No no symptoms reported, No see HPI, No cough, No dyspnea on exertion, No hemoptysis, No orthopnea, No phlegm, No short of breath, No stridor, No wheezing, No other Cardiovascular: chest pain Gastrointestinal: nausea Genitourinary: No no symptoms reported, No see HPI, No decreased output, No discharge, No dysuria, No frequency, No hematuria, No hesitancy, No incontinence, No nocturia, No pain, No other Musculoskeletal: back pain (upper back/shoulders), neck pain Skin: No no symptoms reported, No see HPI, No change in color, No change in hair/nails, No dryness, No hx of skin cancer, No lesions, No lumps, No pruritus, No rash, No other Psychiatric/Neurological: Other (dizziness) Physical Exam Vital Signs Vital Signs - First Documented 11/05/22 11/05/22 22:19 23:51 Temp 36.6 Pulse 93 Resp 18 B/P (MAP) 127/90 (102) Pulse Ox 97 O2 Delivery Room Air Capillary Refill : Less Than 3 Seconds Height, Weight, BMI Height: '" Weight: lbs. oz. kg; 29.86 BMI Method: General Appearance: No Apparent Distress HEENT: Normal ENT Inspection Neck: Supple Respiratory: Lungs Clear Cardiovascular: Regular Rate, Rhythm Gastrointestinal: Normal Bowel Sounds, Non Tender, Soft Rectal: Deferred Back: No CVA Tenderness Extremity: Non Tender, No Calf Tenderness, No Pedal Edema Neurologic/Psychiatric: Alert, Oriented x3 Skin: Warm/Dry Comments Laboratory Tests 11/05/22 22:21: White Blood Count 12.0H, Red Blood Count 4.74, Hemoglobin 15.2, Hematocrit 43, Mean Corpuscular Volume 91, Mean Corpuscular Hemoglobin 32, Mean Corpuscular Hemoglobin Concent 35, Red Cell Distribution Width 12.8, Platelet Count 227, Mean Platelet Volume 9.8, Immature Granulocyte % (Auto) 0, Neutrophils (%) (Auto) 67, Lymphocytes (%) (Auto) 25, Monocytes (%) (Auto) 7, Eosinophils (%) (Auto) 0, Basophils (%) (Auto) 0, Neutrophils # (Auto) 8.1H, Lymphocytes # (Auto) 3.0, Monocytes # (Auto) 0.8, Eosinophils # (Auto) 0.1, Basophils # (Auto) 0.1, Immature Granulocyte # (Auto) 0.0, Prothrombin Time 14.0, INR Comment 1.0, Activated Partial Thromboplast Time 26, Sodium Level 136, Potassium Level 3.7, Chloride Level 101, Carbon Dioxide Level 23, Anion Gap 12, Blood Urea Nitrogen 16, Creatinine 0.99, Estimat Glomerular Filtration Rate 100, BUN/Creatinine Ratio 16, Glucose Level 124H, Calcium Level 9.9, Corrected Calcium , Magnesium Level 2.0, Total Bilirubin 0.7, Aspartate Amino Transf (AST/SGOT) 21, Alanine Aminotransferase (ALT/SGPT) 29, Alkaline Phosphatase 50, Myoglobin 70.4, Troponin I < 0.028, Total Protein 7.7, Albumin 4.7H 11/06/22 05:12: Troponin I < 0.028, Triglycerides Level 101, Cholesterol Level 138, LDL Cholesterol Direct 91, VLDL Cholesterol 20, HDL Cholesterol 36L Assessment/Plan Assessment and Plan 1. Chest Pain in patient with history of CAD with ischemic CM--admit and monitor cardiac enzymes, stress test per cardiology if enzymes normal and no return of chest pain, resume plavix, aspirin and atorvastatin 2. Hypertension with mild hypotension on admit--hold metoprolol and lisinopril and hydrate and monitor BP 3. Hypercholesterolemia--resume atorvastatin 4. DMII--has been off metformin for few months--did have recent episode of hypoglycemia after an active day without eating for several hours Admission Diagnosis Admission Status: POWER Benitez DO Nov 06, 2022 18:00
[2022-11-07] VITALS: BP 125/83
[2022-11-07 03:51] VITALS: BP 117/80
[2022-11-07] MEDS: PANTOPRAZOLE 40 MG (PROTONIX) TAB PO SCH (06:29)
[2022-11-07] MEDS: CATHETER FLUSH 10 ML SYR IVP SCH (06:29)
[2022-11-07] MEDS ORDERED: REGADENOSON 0.4 MG/5 ML SYR (LEXISCAN) IV ONE (07:55)
[2022-11-07 08:11] VITALS: BP 131/93
--- NOTE | 2022-11-07 08:30 | Progress Note - Cardiology ---
Cardiology SOAP Progress Note Subjective: No c/o CP or SOB No c/o palpitations Objective: I&O/Vital Signs 11/07/22 11/07/22 11/07/22 11/07/22 00:00 01:18 03:51 07:00 Temp 36.8 36.7 Pulse 105 93 84 77 Resp 16 16 B/P (MAP) 125/83 (97) 117/80 (92) Pulse Ox 96 98 O2 Delivery Room Air Room Air 11/07/22 08:11 Pulse 90 B/P (MAP) 131/93 (106) Pulse Ox 99 11/07/22 00:00 Intake Total 840 ml Balance 840 ml Constitutional: AAO x 3, well-developed, well-nourished Respiratory: No accessory muscle use; other (good, bilateral air entry) Cardiovascular: regular rate-rhythm, S1 and S2, systolic murmur (soft EDWIN at card base) Gastrointestional: No tender; soft; No guarding, No rebound; audible bowel sounds Extremities: No clubbing, No cyanosis, No significant edema Neurologic/Psychiatric: oriented x 3, other (moves all limbs equally) Skin: No rash on exposed areas, No ulcerations on exposed areas Results/Procedures: Labs Laboratory Tests 11/07/22 09:48: Sodium Level 138, Potassium Level 4.1, Chloride Level 102, Carbon Dioxide Level 26, Anion Gap 10, Blood Urea Nitrogen 16, Creatinine 0.98, Estimat Glomerular Filtration Rate 101, BUN/Creatinine Ratio 16, Glucose Level 101, Calcium Level 9.7 A/P: Assessment: Chest discomfort w/o evidence of ACS CAD and h/o ischemic cardiomyopathy - Ac NSTEMI on 12-08-21, treated with PCI to LAD (see below) - Cardiac cath on 12/08/21: near-total mid vessel occlusion and severe distal stenosis of the left anterior descending. Following deployment of Rowe 2.5 x 23 mm stent to the mid lesion and Adalid Resolute 2.0 x 12 mm stent to the distal lesion, there is no significant residual stenosis. Left circumflex artery is nondominant and has mild plaques. Right coronary artery is large and dominant and has diffuse mild plaques and the terminal posterolateral branch of the right coronary artery has 60% to 70% proximal stenosis. Mild elevation of left ventricular end-diastolic pressure (16 mmHg). Anteroapical hypokinesis. Left ventricular ejection fraction approximately 45%. - Echo on 12/08/21: LVEF 45-50%, anteroapical hypokinesis - Abnormal ECG. ECG on 11/05 and 11/06/22: Sinus, intermittent RBBB pattern, old ASMI - Echocardiogram on 10-03-2022 showed LVEF 50-55%. Distal septal hypokinesis to akinesis Hypertension - controlled. Currently somewhat low bp DM II - mangaged by PCP Plan: * Continue DAPT * Continue statin * Hold beta-ramandeep and LEANN-inhib (low bp) * iv fluids * MPI today * Monitor labs PADMINI LOBATO Nov 07, 2022 08:30
[2022-11-07] MEDS ORDERED: CLOPIDOGREL 75 MG (PLAVIX) TABLET PO SCH (09:00)
[2022-11-07] MEDS: ASPIRIN E.C. 81 MG (ECOTRIN) TAB PO SCH (09:26)
[2022-11-07 10:10] LABS: CALCIUM 9.7 MG/DL (8.5-10.1); CREATININE SERUM 0.98 MG/DL (0.60-1.30); POTASSIUM 4.1 MMOL/L (3.6-5.0)
--- NOTE | 2022-11-07 10:27 | STRESS TEST ---
DATE OF SERVICE: 11/07/2022 RESTING AND POST REGADENOSON TECHNETIUM-99M TETROFOSMIN SPECT CT IMAGING ORDERING PHYSICIAN: Dr. Solorzano. PRIMARY PHYSICIAN: Dr. Walker. CLINICAL DIAGNOSES: Chest discomfort, coronary artery disease. Baseline images were carried out after injection of 10.87 mCi technetium-99m tetrofosmin. This was followed by 0.4 mg regadenoson and 32 mCi of technetium-99m tetrofosmin with stress imaging. The electrocardiogram showed sinus rhythm with right bundle branch block and evidence of old anteroseptal myocardial infarction. The electrocardiogram did not change significantly with regadenoson infusion. Review of images at rest and following stress indicates a fixed apical perfusion defect. Gated images show apical akinesis. Left ventricular ejection fraction is 46%. CONCLUSIONS: 1. Julio-apical infarction without ischemia. 2. Julio-apical akinesis. 3. Left ventricular ejection fraction is 46%. Job ID: [id number] DocumentID: [id number] Dictated Date: 11/07/2022 10:00:14 Accounts Adjustable Clerk Date: 11/07/2022 10:25:00 Dictated By: PJ SOLORZANO MD; RICHA; FACP; FACC;
--- NOTE | 2022-11-07 10:36 | Progress Note - Cardiology ---
Cardiology SOAP Progress Note Subjective: No cp or palp or syncope No focal weakness No n/v/d Generally feels well and wishes to go home Objective: I&O/Vital Signs 11/07/22 11/07/22 11/07/22 11/07/22 00:00 01:18 03:51 07:00 Temp 36.8 36.7 Pulse 105 93 84 77 Resp 16 16 B/P (MAP) 125/83 (97) 117/80 (92) Pulse Ox 96 98 O2 Delivery Room Air Room Air 11/07/22 08:11 Pulse 90 B/P (MAP) 131/93 (106) Pulse Ox 99 11/07/22 00:00 Intake Total 840 ml Balance 840 ml Constitutional: AAO x 3, well-developed, well-nourished Respiratory: No accessory muscle use; other (good, bilateral air entry) Cardiovascular: regular rate-rhythm, S1 and S2, systolic murmur (soft EDWIN at card base) Gastrointestional: No tender; soft; No guarding, No rebound; audible bowel sounds Extremities: No clubbing, No cyanosis, No significant edema Neurologic/Psychiatric: oriented x 3, other (moves all limbs equally) Skin: No rash on exposed areas, No ulcerations on exposed areas Results/Procedures: Labs Laboratory Tests 11/07/22 09:48: Sodium Level 138, Potassium Level 4.1, Chloride Level 102, Carbon Dioxide Level 26, Anion Gap 10, Blood Urea Nitrogen 16, Creatinine 0.98, Estimat Glomerular Filtration Rate 101, BUN/Creatinine Ratio 16, Glucose Level 101, Calcium Level 9.7 Laboratory Tests 11/05/22 22:21 11/07/22 09:48 A/P: Assessment: Chest discomfort w/o evidence of ACS CAD and h/o ischemic cardiomyopathy - Ac NSTEMI on 12-08-21, treated with PCI to LAD (see below) - Cardiac cath on 12/08/21: near-total mid vessel occlusion and severe distal stenosis of the left anterior descending. Following deployment of Adalid 2.5 x 23 mm stent to the mid lesion and Adalid Resolute 2.0 x 12 mm stent to the distal lesion, there is no significant residual stenosis. Left circumflex artery is nondominant and has mild plaques. Right coronary artery is large and dominant and has diffuse mild plaques and the terminal posterolateral branch of the right coronary artery has 60% to 70% proximal stenosis. Mild elevation of left ventricular end-diastolic pressure (16 mmHg). Anteroapical hypokinesis. Left ventricular ejection fraction approximately 45%. - Echo on 12/08/21: LVEF 45-50%, anteroapical hypokinesis - Abnormal ECG. ECG on 11/05 and 11/06/22: Sinus, intermittent RBBB pattern, old ASMI - Echocardiogram on 10-03-2022 showed LVEF 50-55%. Distal septal hypokinesis to akinesis - MPI on 11-07-22: anteroapical infarction w/o ischemia, anteroapical akinesis, LVEF 46% Hypertension - controlled. Currently somewhat low bp DM II - mangaged by PCP Plan: * Continue DAPT * Continue statin * Resume beta-ramandeep. Hold LEANN-inhib (low bp) * I discussed his CV issues and CV w/u (summarized above) * Outpt f/u advised PJ PRINGLE MD FACP FAC CCDS Nov 07, 2022 10:36
--- NOTE | 2022-11-07 10:56 | Discharge Inst-Cardiology ---
Discharge Inst-Cardiac Discharge Medications Continued Medications: Aspirin (Aspirin EC) 81 Mg Tablet. 81 MG PO DAILY, TAB Atorvastatin Calcium (Atorvastatin Calcium) 80 Mg Tablet 80 MG PO DAILY, TAB Clopidogrel Bisulfate (Clopidogrel) 75 Mg Tablet 75 MG PO DAILY, TAB Metoprolol Succinate (Metoprolol Succinate) 50 Mg Tab.er.24h 50 MG PO DAILY, TAB Pantoprazole Sodium (Pantoprazole Sodium) 40 Mg Tablet.dr 40 MG PO HS, TAB Discontinued Medications: Lisinopril (Lisinopril) 2.5 Mg Tablet 2.5 MG PO DAILY, TAB Patient Instructions Patient Instructions: Please schedule appointment to see Dr. Solorzano in one week PADMINI LOBATO Nov 07, 2022 10:56
[2022-11-07 11:45] VITALS: BP 119/77
== END 2022-11-07 14:26 | disposition home or self-care (01) ==
LOC: EDUNIT# 22:16 → ER 22:17 → CSD 23:20
PROVIDERS: ADMIT Family Medicine; ATTEND Family Medicine
DX: R07.89 Other chest pain (principal); I10 Essential (primary) hypertension; E78.00 Pure hypercholesterolemia, unspecified; E11.9 Type 2 diabetes mellitus without complications; I25.10 Atherosclerotic heart disease of native coronary artery without angina pectoris; I25.2 Old myocardial infarction; Z79.84 Long term (current) use of oral hypoglycemic drugs; Z79.82 Long term (current) use of aspirin; Z79.02 Long term (current) use of antithrombotics/antiplatelets
CPT/HCPCS: 36415; 71045; 78452; 80048; 80053; 80061; 83735; 83874; 84484; 85025; 85610; 85730; 93005; 93017; 93041

== ENCOUNTER 2023-09-07 01:50 | Emergency (ER) | payer BC ==
[~2023-09-07] VITALS: Ht 167.7 cm; Wt 86.2 kg
--- NOTE | 2023-09-07 01:10 | ED Chest Pain ---
General Stated Complaint: UPPER RT SIDE CHEST PX Source: patient, old records History of Present Illness Date Seen by Provider: Sep 07, 2023 Time Seen by Provider: 02:00 Initial Comments PT ARRIVES VIA POV FROM HOME C/O RIGHT UPPER CHEST PAIN PAIN BEGAN AT 0130 WHILE WATCHING YOU TUBE VIDEOS PAIN RESOLVED ON ARRIVAL STATES PAIN WAS 5/10 AT WORST NOTHING WORSENED OR IMPROVED PAIN NO RADIATION OF PAIN NO SHORTNESS OF BREATH + SWEATS + DIZZINESS NO NAUSEA/VOMITING NO SYNCOPE NO PALPITATIONS NO SWELLING IN LEGS/FEET OR PAIN IN CALVES NO FEVER, COUGH OR RECENT ILLNESS HAS NOT TAKEN ANYTHING FOR PAIN PT HAS HISTORY OF CAD WITH STENTS--HE STATES THIS PAIN IS NOT THE SAME THE PAIN WHEN HE HAD HIS STENTS PLACED--IS IN A DIFFERENT AREA AND FEELS DIFFERENT HE IS ON ASPIRIN + PLAVIX, HE ALSO TAKES METOPROLOL FOR HTN AND METFORMIN FOR DIABETES NO RECENT CHANGES IN MEDICATIONS HE DOES NOT CHECK HIS BLOOD SUGAR VERY OFTEN, BUT DID CHECK IT TONIGHT AND IT WAS 129. HE DOES NOT HAVE ANY HOME NITROGLYCERINE. PT IS NON-SMOKER, NON-DRINKER, NON-DRUG USER PCP: DR. DUEÑAS CTC OPERATOR: DR. PRINGLE. ROUTINE 6 MONTH FOLLOW UP IS THIS MONTH. LAST VISIT WAS IN MARCH OF THIS YEAR Allergies and Home Medications Allergies Coded Allergies: shellfish derived (Verified Allergy, Unknown, 12/08/21) Patient Home Medication List Home Medication List Reviewed: Yes Aspirin (Aspirin EC) 81 Mg Tablet., 81 MG PO DAILY, (Reported) Entered as Reported by: EVELYNE POP on 11/06/22 1243 Atorvastatin Calcium (Atorvastatin Calcium) 80 Mg Tablet, 80 MG PO DAILY, (Reported) Entered as Reported by: EVELYNE POP on 11/06/22 1243 Clopidogrel Bisulfate (Clopidogrel) 75 Mg Tablet, 75 MG PO DAILY, (Reported) Entered as Reported by: EVELYNE POP on 11/06/22 1243 Metoprolol Succinate (Metoprolol Succinate) 50 Mg Tab.er.24h, 50 MG PO DAILY, (Reported) Entered as Reported by: EMILEE ALEJO on 11/02/22 0618 Pantoprazole Sodium (Pantoprazole Sodium) 40 Mg Tablet., 40 MG PO HS, (Reported) Entered as Reported by: EVELYNE POP on 11/06/22 1243 Review of Systems Review of Systems Constitutional: see HPI, diaphoresis, dizziness EENTM: No Symptoms Reported Respiratory: No Symptoms Reported Cardiovascular: See HPI, Chest Pain Gastrointestinal: See HPI; Denies Abdominal Pain; Nausea; Denies Vomiting Genitourinary: No Symptoms Reported Musculoskeletal: no symptoms reported Skin: no symptoms reported Psychiatric/Neurological: No Symptoms Reported Endocrine: No Symptoms Reported Hematologic/Lymphatic: No Symptoms Reported Past Aooqeoy-Gqdasv-Ulvomb Hx Patient Social History Tobacco Use?: No Smoking Status: Never a Smoker Smokeless Tobacco Frequency: Never a User Use of E-Cig and/or Vaping dev: No Use of E-Cig and/or Vaping Dustin: Never a User Substance use?: No Alcohol Use?: No Immunizations Up To Date First/Initial COVID19 Vaccinat: X2 Second COVID19 Vaccination Porter: X2 Third COVID19 Vaccination Date: X2 Past Medical History Surgery/Hospitalization HX: DIABETES, HTN, STENTS Surgeries: Yes (CARDIAC CATH WITH STENTS X 2) Coronary Stent Respiratory: No Cardiac: Yes (STENTS X 2; RBBB) Coronary Artery Disease, High Cholesterol, Hypertension Neurological: No Genitourinary: No Gastrointestinal: No Musculoskeletal: No Endocrine: Yes Diabetes, Non-Insulin dep HEENT: No Cancer: No Psychosocial: No Integumentary: No Family Medical History Heart Disease CARDIAC CATH AT 12/[address] PRINGLE: CONCLUSIONS: 1. Coronary artery disease primarily consisting of near-total mid-vessel occlusion and severe distal stenosis of the left anterior descending to which successful intervention was carried out. Following deployment of Resolute [place] 2.5 x 23 mm stent to the mid lesion and Resolute [place] 2.0 x 12 mm stent to the distal lesion, there is no significant residual stenosis. Left circumflex artery is nondominant and has mild plaques. Right coronary artery is large and dominant and has diffuse mild plaques and the terminal posterolateral branch of the right coronary artery has 60% to 70% proximal stenosis. 2. Mild elevation of left ventricular end-diastolic pressure (16 mmHg). 3. Anteroapical hypokinesis. 4. Left ventricular ejection fraction approximately 45%. Physical Exam Vital Signs Vital Signs - First Documented 09/07/23 01:14 Temp 37.0 Pulse 96 Resp 18 B/P (MAP) 128/92 (104) Pulse Ox 99 O2 Delivery Room Air Capillary Refill : Height, Weight, BMI Height: '" Weight: lbs. oz. kg; 29.51 BMI Method: General Appearance: No Apparent Distress, WD/WN, Other (SMILING, VERY PLEASANT, DOES NOT APPEAR TO BE ILL OR TO BE IN ANY DISCOMFORT OR DISTRESS) HEENT: PERRL/EOMI Neck: Normal Inspection; No Carotid Bruit, No JVD Respiratory: Chest Non Tender, Normal Breath Sounds, No Accessory Muscle Use, No Respiratory Distress Cardiovascular: Regular Rate, Rhythm, No Edema, No JVD, No Murmur Gastrointestinal: No Pulsatile Mass, Non Tender, Soft Extremity: Normal Capillary Refill, Normal Inspection, Normal Range of Motion, Non Tender, No Calf Tenderness, No Pedal Edema Neurologic/Psychiatric: Alert, Oriented x3, No Motor/Sensory Deficits, Normal Mood/Affect, food production associate II-XII Norm as Tested Skin: Normal Color, Warm/Dry Progress/Results/Core Measures Results/Orders Lab Results Laboratory Tests Test 09/07/23 01:01 09/07/23 03:32 Range/Units White Blood Count 9.2 4.3-11.0 10^3/uL Red Blood Count 4.55 4.30-5.52 10^6/uL Hemoglobin 14.5 13.3-17.7 g/dL Hematocrit 42 40-54 % Mean Corpuscular Volume 91 80-99 fL Mean Corpuscular Hemoglobin 32 25-34 pg Mean Corpuscular Hemoglobin Concent 35 32-36 g/dL Red Cell Distribution Width 12.6 10.0-14.5 % Platelet Count 187 130-400 10^3/uL Mean Platelet Volume 9.9 9.0-12.2 fL Immature Granulocyte % (Auto) 0 % Neutrophils (%) (Auto) 58 42-75 % Lymphocytes (%) (Auto) 31 12-44 % Monocytes (%) (Auto) 9 0-12 % Eosinophils (%) (Auto) 2 0-10 % Basophils (%) (Auto) 0 0-10 % Neutrophils # (Auto) 5.3 1.8-7.8 10^3/uL Lymphocytes # (Auto) 2.8 1.0-4.0 10^3/uL Monocytes # (Auto) 0.8 0.0-1.0 10^3/uL Eosinophils # (Auto) 0.2 0.0-0.3 10^3/uL Basophils # (Auto) 0.0 0.0-0.1 10^3/uL Immature Granulocyte # (Auto) 0.0 0.0-0.1 10^3/uL Prothrombin Time 14.6 12.2-14.7 SEC INR Comment 1.1 0.8-1.4 Activated Partial Thromboplast Time 26 24-35 SEC D-Dimer 0.19 0.00-0.49 UG/ML Sodium Level 139 135-145 MMOL/L Potassium Level 3.4 L 3.6-5.0 MMOL/L Chloride Level 105 98-107 MMOL/L Carbon Dioxide Level 23 21-32 MMOL/L Anion Gap 11 5-14 MMOL/L Blood Urea Nitrogen 20 H 7-18 MG/DL Creatinine 0.88 0.60-1.30 MG/DL Estimat Glomerular Filtration Rate 112 BUN/Creatinine Ratio 23 Glucose Level 131 H 70-105 MG/DL Calcium Level 9.5 8.5-10.1 MG/DL Corrected Calcium 9.3 8.5-10.1 MG/DL Magnesium Level 2.0 1.6-2.4 MG/DL Total Bilirubin 0.7 0.1-1.0 MG/DL Aspartate Amino Transf (AST/SGOT) 23 5-34 U/L Alanine Aminotransferase (ALT/SGPT) 33 0-55 U/L Alkaline Phosphatase 50 40-136 U/L Total Creatine Kinase 151 30-200 U/L Creatine Kinase MB 1.5 <6.6 NG/ML Myoglobin 35.3 10.0-92.0 NG/ML Troponin I < 0.028 < 0.028 <0.028 NG/ML B-Type Natriuretic Peptide 41.8 <100.0 PG/ML Total Protein 6.9 6.4-8.2 GM/DL Albumin 4.3 3.2-4.5 GM/DL Amylase Level 47 25-125 U/L Lipase 81 H 8-78 U/L My Orders Orders - JO BHANDARI DO Ekg Tracing (09/07/23 01:54) Cbc And Automated Diff (09/07/23 01:04) Magnesium (09/07/23 01:04) Chest 1 View, Ap/Pa Only (09/07/23 01:04) Comprehensive Metabolic Panel (09/07/23 01:04) Myoglobin Serum (09/07/23 01:04) Protime With Inr (09/07/23 01:04) Partial Thromboplastin Time (09/07/23 01:04) O2 (09/07/23 01:04) Monitor-Rhythm Ecg Trace Only (09/07/23 01:04) Ed Iv/Invasive Line Start (09/07/23 01:04) Creatine Kinase (09/07/23 01:04) Creatine Kinase Mb (09/07/23 01:04) Lipase (09/07/23 01:04) Amylase (09/07/23 01:04) Bnp Alissa (09/07/23 01:04) Fibrin Degradation Products (09/07/23 01:04) Troponin I [place] (09/07/23 01:04) Nitroglycerin 0.4 Mg Btl 25's (Nitroglyc (09/07/23 01:15) Troponin I [place]issa (09/07/23 03:23) Ekg Tracing (09/07/23 03:23) Medications Given in ED Current Medications Medications Dose Ordered Sig/Vic Route Start Time Stop Time Status Last Admin Dose Admin Nitroglycerin 0.4 mg UD PRN SL 09/07/23 01:15 09/07/23 04:15 DC 09/07/23 01:50 0.4 MG Vital Signs/I&O 09/07/23 09/07/23 01:14 04:14 Temp 37.0 Pulse 96 67 Resp 18 18 B/P (MAP) 128/92 (104) 102/68 Pulse Ox 99 99 O2 Delivery Room Air Room Air Progress Progress Note : Progress Note NOTE THAT TIME CHANGED SOON THE PATIENT ARRIVED--MOVED BACK 1 HOUR VITALS ON ARRIVAL: TEMP 37.0=98.6, HR 96, RR 18 BP 128/92, O2 SAT 99% ON ROOM A IR GIVEN: -ASPIRIN NTG HELD PAIN RESOLVED SOON HE ARRIVED LABS: -CBC NORMAL -CMP UNREMARKABLE -MG NORMAL -AMYLASE/LIPASE UNREMARKABLE -TROPONIN NEGATIVE X 2 -BNP NORMAL -PT/PTT/INR NORMAL -D-DIMER NEGATIVE EKG WITH CHRONIC RBBB, UNCHANGED FROM PREVIOUS--REPEAT EKG IS UNCHANGED CXR UNREMARKABLE PT OBSERVED IN ER AND REPEAT EKG AND TROPONIN DONE, AND BOTH ARE NEGATIVE PT SLEPT/RESTED QUIETLY FOR REMAINDER OF ER STAY PT HAD NO COMPLAINTS OF ANY KIND FOR ENTIRE ER STAY DISCUSSED TEST RESULTS, ANTICIPATED COURSE, SYMPTOMATIC TREATMENT, NEED FOR FOLLOW UP AND RETURN PRECAUTIONS REVIEWED PRIOR RECORDS, INCLUDING ER VISITS, ADMITS/H&P'S/CONSULTS/DISCHARGE SUMMARIES, TESTS/PROCEDURES Initial ECG Impression Date: Sep 07, 2023 Initial ECG Impression Time: 01:04 Initial ECG Rate: 82 Initial ECG Rhythm: Normal Sinus (RBBB) Initial ECG Intervals SC 143 QRS 130 QT/QTC 374/412 Initial ECG Comparisson: Unchanged Comment INTEPRETED BY ME EKG : EKG Time: 03:45 Rate: 70 Rhythm: Normal Sinus (RBBB) Intervals SC 156 QRS 117 QT/QTC 394/415 ECG Comparisson: Unchanged ECG Impression: Nonspecific Changes Comment INTERPRETED BY ME Diagnostic Imaging Comments CXR--NO ACUTE PROCESS, PENDING RADIOLOGIST REVIEW Reviewed: Reviewed by Me Departure Impression Primary Impression: RIGHT UPPER CHEST PAIN Additional Impressions: HX OF CAD WITH STENTS NIDDM HTN (hypertension) Disposition: 01 HOME, SELF-CARE Condition: Stable Departure-Patient Inst. Decision time for Depature: 04:05 Referrals: POWER DUEÑAS DO (PCP/Family) Primary Care Physician Patient Instructions: Chest Pain (DC) Add. Discharge Instructions: CONTINUE ALL YOUR REGULAR MEDICATIONS PRESCRIBED FOLLOW UP WITH DR. PRINGLE THIS MONTH SCHEDULED RETURN TO ER IF YOUR SYMPTOMS RETURN JO BHANDARI DO Sep 07, 2023 01:10
[2023-09-07 01:17] LABS: BASOPHILS % (AUTO) 0 % (0-10); EOSINOPHILS # (AUTO) 0.2 10^3/uL (0.0-0.3); EOSINOPHILS % (AUTO) 2 % (0-10); HEMATOCRIT 42 % (40-54); HEMOGLOBIN 14.5 g/dL (13.3-17.7); LYMPHOCYTES # (AUTO) 2.8 10^3/uL (1.0-4.0); LYMPHOCYTES % (AUTO) 31 % (12-44); MEAN CORPUSCULAR HEMOGLOBIN 32 pg (25-34); MEAN CORPUSCULAR HGB CONC 35 g/dL (32-36); MEAN CORPUSCULAR VOLUME 91 fL (80-99); MEAN PLATELET VOLUME 9.9 fL (9.0-12.2); MONOCYTES # (AUTO) 0.8 10^3/uL (0.0-1.0); MONOCYTES % (AUTO) 9 % (0-12); NEUTROPHILS # (AUTO) 5.3 10^3/uL (1.8-7.8); NEUTROPHILS % (AUTO) 58 % (42-75); PLATELET COUNT 187 10^3/uL (130-400); WHITE BLOOD COUNT 9.2 10^3/uL (4.3-11.0)
[2023-09-07 01:26] LABS: ALBUMIN 4.3 GM/DL (3.2-4.5); CHLORIDE 105 MMOL/L (98-107); INR 1.1 (0.8-1.4); POTASSIUM 3.4 MMOL/L (3.6-5.0); PROTHROMBIN TIME PATIENT 14.6 SEC (12.2-14.7); SODIUM 139 MMOL/L (135-145)
[2023-09-07 01:27] LABS: AMYLASE 47 U/L (25-125); CALCIUM 9.5 MG/DL (8.5-10.1)
[2023-09-07 01:28] LABS: GLUCOSE 131 MG/DL (70-105)
[2023-09-07 01:29] LABS: TOTAL PROTEIN 6.9 GM/DL (6.4-8.2)
[2023-09-07 01:30] LABS: BILIRUBIN,TOTAL 0.7 MG/DL (0.1-1.0); CARBON DIOXIDE 23 MMOL/L (21-32)
[2023-09-07 01:32] LABS: ALKALINE PHOSPHATASE 50 U/L (40-136); CREATININE SERUM 0.88 MG/DL (0.60-1.30); GFR ESTIMATED 112
[2023-09-07 01:33] LABS: BUN/CREATININE RATIO 23
[2023-09-07 01:35] LABS: ALANINE AMINOTRANSFERASE 33 U/L (0-55)
[2023-09-07 01:36] LABS: CREATINE KINASE 151 U/L (30-200); LIPASE 81 U/L (8-78)
[2023-09-07 01:37] LABS: FIBRIN DEGRADATION PRODUCTS 0.19 UG/ML (0.00-0.49)
[2023-09-07 01:43] LABS: CREATINE KINASE MB 1.5 NG/ML (<6.6)
[~2023-09-07 01:50] MED LIST changes: +NITROGLYCERIN 0.4 MG SL TABLETS BTL 25'S SL PRN; +PANT40TA52 PO
[2023-09-07 04:14] VITALS: BP 102/68
--- NOTE | 2023-09-07 06:51 | Diagnostic Imaging Report ---
INDICATION: Chest pain TECHNIQUE: Single view chest 1:36 AM CORRELATION STUDY: 11/05/2022 FINDINGS: The heart size, mediastinal configuration and pulmonary vascularity are within normal limits. The lungs are clear with no consolidating infiltrate. There is no significant effusion or pneumothorax. IMPRESSION: 1. Negative appearing single view chest. Dictated by: Dictated on workstation # [id number]
== END 2023-09-07 04:14 | disposition home or self-care (01) ==
LOC: EDUNIT# 01:50 → ER 01:53
DX: R07.89 Other chest pain (principal); I10 Essential (primary) hypertension; E11.9 Type 2 diabetes mellitus without complications; Z86.79 Personal history of other diseases of the circulatory system; Z95.5 Presence of coronary angioplasty implant and graft; Z79.82 Long term (current) use of aspirin; Z79.02 Long term (current) use of antithrombotics/antiplatelets; Z79.899 Other long term (current) drug therapy; Z79.84 Long term (current) use of oral hypoglycemic drugs
CPT/HCPCS: 36415; 71045; 80053; 82150; 82550; 82553; 83690; 83735; 83874; 83880; 84484; 85025; 85379; 85610; 85730; 93005; 93041